=== PATIENT | female | born 1940 | race Caucasian/White ===

== ENCOUNTER 2017-06-15 14:40 | Inpatient (IN) ==
[2017-06-15 17:59] LABS: Basophils # 0.1 10*3/uL (0.0-0.2); Basophils % 0.9 % (0.0-0.8); Eosinophils # 0.2 10*3/uL (0.0-0.87); Eosinophils % 3.3 % (0.00-10.9); Hematocrit 35.3 VOL% (35.7-47.0); Immature Granulocytes % 0.7 %; Immature Granulocytes Absolute 0.04 #; Lymphocytes # 1.5 10*3/uL (1.4-4.0); Lymphocytes % 27.8 % (21.3-54.2); Mean Corpuscular Hemoglobin 35 PG (27-34); Mean Corpuscular Volume 102.6 FL (87-102); Mean Platelet Volume 11.7 FL (9.6-12.0); Monocytes # 0.4 10*3/uL (0.11-0.8); Monocytes % 6.4 % (1.7-12.7); Neutrophils # 3.4 10*3/uL (1.4-7.4); Neutrophils % 60.9 % (38.7-73.9); Platelet Count 207 T/CUMM (130-400); Red Blood Count 3.44 MC/CUMM (3.8-5.5); White Blood Count 5.5 T/CUMM (4-12)
[2017-06-15 18:12] LABS: INR 0.9; PT Patient Result 9.8 SECS; Partial Thromboplastin Time 25.9 SECS (0-40)
[2017-06-15] MEDS: SODIUM CHLORIDE 0.9% 1,000 ML IV SCH (18:27)
--- NOTE | 2017-06-15 18:44 | Hospitalist History & Physical ---
Assessment and Plan (1) Rectal bleeding Status: Acute Assessment and plan: The patient is currently being anticoagulated with Eliquis. Hold Eliquis for now. The patient reports multiple episodes of rectal bleeding in the past which were essentially attributed to internal hemorrhoids. We will consult gastroenterology to evaluate. Current Visit: Yes (2) Chronic anticoagulation Status: Acute Assessment and plan: The patient is currently coagulated with Eliquis. We will hold all anticoagulation agents pending gastroenterology evaluation. Current Visit: No (3) Diabetes Status: Acute Assessment and plan: We will obtain hemoglobin A1c and start Accu-Cheks with sliding scale coverage. Current Visit: No Qualifiers: Diabetes mellitus complication detail: with unspecified neuropathy (4) Hypertension Status: Acute Assessment and plan: We will resume home medications as previously ordered. We will monitor provide supportive measures. Current Visit: No Qualifiers: Hypertension type: essential hypertension Qualified Code(s): I10 - Essential (primary) hypertension History of Present Illness Chief complaint: Rectal bleed History of present illness: This is a very pleasant 76-year-old female that presented to [facility] as a direct admission from the office of Dr. Rosy Lerner for further evaluation of rectal bleeding. The patient has a very long and extensive medical history significant for atrial fibrillation with rapid ventricular response, dysphasia, achalasia, hypertension, diabetes, renal insufficiency, irritable bowel disease, chronic diarrhea, myasthenia gravis, chronic anticoagulation, peripheral edema, hypothyroidism, aortic insufficiency , obstructive sleep apnea, restless leg syndrome, and dyslipidemia. The patient has a history of multiple surgical procedures including pacemaker placement and multiple surgical procedures to her bilateral hands. The patient reported the onset of symptoms 1 day prior to presentation. The patient reports that she chronically has diarrhea and noticed that there was some blood in her stool. She presented to Dr. Rosy Lerner's office for further evaluation. The patient was seen and evaluated by Dr. Lerner. Hospital medicine was contacted regarding direct admission for further evaluation of the patient's rectal bleeding. The patient was subsequently admitted to the hospitalist service for continuation of care. Due to the complexity of the patient's medical history, a gastroenterology consultation has been requested. Home Medications Medication Instructions Recorded Confirmed Type Carvedilol 25 mg PO BID 09/22/15 06/15/17 History Magnesium Chloride [Mag Delay] 64 mg PO BID 09/22/15 06/15/17 History Pramipexole Di-HCl [Pramipexole 3 mg PO BEDTIME 09/22/15 06/15/17 History Dihydrochloride] Sotalol HCl [Sotalol] 80 mg PO BID 09/22/15 06/15/17 History Spironolactone [Aldactone] 25 mg PO DAILY 09/22/15 06/15/17 History Apixaban [Eliquis] 5 mg PO BID 11/19/15 06/15/17 History Coenzyme Q10 200 mg PO BID 11/19/15 06/15/17 History Pyridostigmine Tab [Mestinon] 60 mg PO QID 11/19/15 06/15/17 History Albuterol Sulfate [Proair 2 puff INH Q6H PRN 11/20/15 06/15/17 History Respiclick] Budesonide/Formoterol 160-4.5 2 puffs PO BID 11/20/15 06/15/17 History [Symbicort 160-4.5] Levothyroxine Tab [Synthroid Tab] 150 mcg PO DAILY@0700 07/21/16 06/15/17 History Olmesartan [Benicar] 20 mg PO QAM PRN 07/21/16 06/15/17 History Pantoprazole Tab [Protonix Tab] 40 mg PO DAILY 07/21/16 06/15/17 History Sertraline [Zoloft] 100 mg PO BEDTIME 07/21/16 06/15/17 History Vit B Cmplx No3/FA/C/Biot/Zinc 1 tablet PO DAILY 07/21/16 06/15/17 History [Nephplex Rx Tablet] Ascorbic Acid Tab [Vitamin C Tab] 1,000 mg PO BID tablet 07/22/16 06/15/17 Rx Cholecalciferol (Vitamin D3) 2,500 unit PO DAILY 08/11/16 06/15/17 History [Vitamin D3] Furosemide Tab [Lasix Tab] 1.5 tablet PO QAM 08/11/16 06/15/17 History Allergies Allergy/AdvReac Type Severity Reaction Status Date / Time azathioprine [From Imuran] Allergy Severe ANAPHYLAXIS Verified 07/27/16 10:27 doxycycline Allergy Severe SHORTNESS Verified 07/03/16 07:58 OF BREATH fluconazole [From Diflucan] Allergy Verified 12/09/16 06:51 clindamycin AdvReac Severe Swelling Verified 06/15/17 17:12 of Lip/Tongue/Throat lisinopril AdvReac Severe swelling Verified 06/15/17 17:12 of face throat, and lips ciprofloxacin [From Cipro] AdvReac Mild gout Verified 06/15/17 17:12 levofloxacin [From Levaquin] AdvReac Mild gout Verified 06/15/17 17:12 Medical,Surgical,& Family Hx - Medical History Cardio: History of: Cardiac Dysrhythmia (afib), CHF, Hypertension, Pacemaker No history of: Aneurysm, Cerebrovascular Disease, Congenital Heart Disease Neurology: History of: Vertigo (sometimes), Neurological Problems (myasthenia gravis) No history of: Seizures HEENT: History of: HEENT Problems (SINUS SURGERY) Endocrine: History of: Diabetes Mellitus (NIDDM), Dyslipidemia, Thyroid Disorder Rheumatology: History of;: Fibromyalgia, Gout, Myasthenia Gravis Respiratory: History of: Asthma, Bronchitis, Intubation, Obstructive Sleep Apnea (does not wear her c-pap) Renal: History of: Renal Failure (stage 3), Renal Problems (ELEVATED KIDNEY FUNCTION) Gastrointestinal: History of: GERD, GI Problems (history of achalasia esophagus) Musculoskeletal: History of: Musculoskeletal Problems (restless legs) Hematology: History of: Anemia No history of: Blood Transfusion Reaction Other: History of: Miscellaneous Medical Problems (myasthenia gravis) No history of: Anesthesia Reactions - Surgical History Cardiac Surgeries: Sugical HX of: Cardiac Catheterization Patient Denies: Cardiac Surgery HEENT Surgeries: Surgical HX of: Eye Surgery (CATARACT) Abdominal Surgeries: Surgical HX of: Appendectomy, Cholecystectomy, Colonoscopy , EGD Reproductive Surgeries: Surgical HX of;: Breast Surgery (ABHAY MASTECTOMY, BREAST RECONSTRUCTION X 4), Hysterectomy - Family History Family History: Reports;: Family Cancer (MOTHER-BREAST, FATHER-PROSTATE), Family Heart Disease - Social History Smoking Status: Never smoker Frequency of Alcohol Use: None Type of Drug Use: None Exam - Constitutional Vitals: Period Temp Pulse Resp BP Sys/Bui Pulse Ox Last 24 Hr 97.2 F 52-60 20-20 170/87 97 General appearance: morbidly obese - Head Head exam: Present: normal inspection, normocephalic, atraumatic - Eye Eye exam: Present: EOMI. Absent: conjunctival injection Pupils: Present: JO ANN, normal accommodation - ENT ENT exam: Present: normal exam, normal external ear exam, normal oropharynx - Neck Neck exam: Present: normal inspection. Absent: lymphadenopathy, meningismus, tenderness, thyromegaly - Respiratory Respiratory exam: Present: clear to auscultation bilaterally. Absent: rales, rhonchi, stridor, wheezes - Cardiovascular Cardiovascular exam: Present: regular rate and rhythm. Absent: carotid bruit, diastolic murmur, gallop, JVD, rubs, systolic murmur - GI/Abdominal GI/Abdominal exam: Present: normal bowel sounds, soft. Absent: firm, guarding, tenderness, rebound - Extremities Exam Extremities exam: Present: normal inspection, normal capillary refill, full ROM , edema - Back Exam Back exam: Present: normal inspection - Neurological Exam Neurological exam: Present: alert, oriented X3, CN II-XII intact - Psychiatric Psychiatric exam: Present: normal affect, normal mood - Skin Skin exam: Present: normal color, warm, dry Results - Labs CBC & BMP: 06/15/17 17:37 Lab Results: I have reviewed the past 24 hour labs Quality Measures - Stroke Symptom Onset Unknown: No
[2017-06-15] MEDS ORDERED: GLUCAGON 1 MG VIAL IM PRN (18:47)
[2017-06-15] MEDS ORDERED: DEXTROSE 50% 25 GM/50 ML SYRINGE IV PRN (18:47)
[2017-06-15] MEDS ORDERED: ONDANSETRON 4 MG/2 ML VIAL IV PRN (18:49)
[2017-06-15 19:12] LABS: Alanine Aminotransferase 41 U/L (13-56); Albumin 3.3 G/DL (3.4-5.0); Alkaline Phosphatase 151 U/L (45-117); Aspartate Amino Transferase 26 U/L (0-37); Bilirubin,Total < 0.39 MG/DL (0.2-1.0); Blood Urea Nitrogen 33 MG/DL (7-18); Calcium 9.1 MG/DL (8.5-10.1); Glucose 93 MG/DL (74-106); Osmolality,Calculated 283.5 MOS/KG (273-304); Potassium 4.7 MMOL/L (3.5-5.1); Sodium 139 MMOL/L (136-145); Total Protein 6.9 G/DL (6.4-8.3)
[2017-06-15] MEDS ORDERED: ALBUTEROL 2.5 MG/3 ML NEB RESP TX PRN (19:30)
[2017-06-15] MEDS ORDERED: BUDESONIDE/FORMOTEROL 160-4.5 INHALER 6 GM INH SCH (21:00)
[2017-06-15] MEDS: COENZYME Q10 100 MG CAPSULE PO SCH (21:59)
[2017-06-15] MEDS: SOTALOL 80 MG TABLET PO SCH (21:59)
[2017-06-15] MEDS: CARVEDILOL 25 MG TABLET PO SCH (22:00)
[2017-06-15] MEDS: PYRIDOSTIGMINE 60 MG TABLET PO SCH (22:01)
[2017-06-15] MEDS: PRAMIPEXOLE 1 MG TABLET PO SCH (22:01)
[2017-06-15] MEDS: ASCORBIC ACID 500 MG TABLET PO SCH (22:02)
[2017-06-15] MEDS: MAGNESIUM CHLORIDE 64 MG TABLET PO SCH (22:02)
[2017-06-15] MEDS: SERTRALINE 100 MG TABLET PO SCH (22:02)
[2017-06-15] MEDS: INSULIN REGULAR 100 UNIT/ML SUBCUT SCH (22:03)
[2017-06-16 05:59] LABS: Basophils % 0.9 % (0.0-0.8); Eosinophils # 0.1 10*3/uL (0.0-0.87); Eosinophils % 2.9 % (0.00-10.9); Hematocrit 32.8 VOL% (35.7-47.0); Hemoglobin 11.1 GM/DL (12.0-16.0); Immature Granulocytes % 0.4 %; Immature Granulocytes Absolute 0.02 #; Lymphocytes # 1.3 10*3/uL (1.4-4.0); Mean Corpuscular HGB Conc 33.8 GM/DL (32-36); Mean Corpuscular Hemoglobin 35 PG (27-34); Mean Corpuscular Volume 102.2 FL (87-102); Mean Platelet Volume 11.8 FL (9.6-12.0); Monocytes # 0.3 10*3/uL (0.11-0.8); Monocytes % 7.4 % (1.7-12.7); Neutrophils # 2.6 10*3/uL (1.4-7.4); Neutrophils % 58.4 % (38.7-73.9); Platelet Count 158 T/CUMM (130-400); Red Blood Count 3.21 MC/CUMM (3.8-5.5); Red Cell Distribution Width 14.7 % (9.3-17.3); White Blood Count 4.5 T/CUMM (4-12)
[2017-06-16 06:30] LABS: Albumin 2.7 G/DL (3.4-5.0); Bilirubin,Total 0.6 MG/DL (0.2-1.0); Calcium 8.7 MG/DL (8.5-10.1); Magnesium 2.1 MG/DL (1.8-2.4); Osmolality,Calculated 284.3 MOS/KG (273-304); Phosphorous 3.1 MG/DL (2.5-4.9); Potassium 4.9 MMOL/L (3.5-5.1); Total Protein 5.8 G/DL (6.4-8.3)
[2017-06-16] MEDS: LEVOTHYROXINE 150 MCG TABLET PO SCH (07:03)
[2017-06-16] MEDS: INSULIN REGULAR 100 UNIT/ML SUBCUT SCH ×4 (08:11→21:06)
[2017-06-16] MEDS: ASCORBIC ACID 500 MG TABLET PO SCH ×2 (08:39→21:05)
[2017-06-16] MEDS: SOTALOL 80 MG TABLET PO SCH ×2 (08:39→21:05)
[2017-06-16] MEDS: CHOLECALCIFEROL 1,000 UNIT TABLET PO SCH (08:40)
[2017-06-16] MEDS: COENZYME Q10 100 MG CAPSULE PO SCH ×2 (08:41→21:14)
[2017-06-16] MEDS: PYRIDOSTIGMINE 60 MG TABLET PO SCH ×4 (08:41→21:05)
[2017-06-16] MEDS: MAGNESIUM CHLORIDE 64 MG TABLET PO SCH ×2 (08:42→21:06)
[2017-06-16] MEDS: SPIRONOLACTONE 25 MG TABLET PO SCH (08:43)
[2017-06-16] MEDS: OLMESARTAN 20 MG TABLET PO PRN (08:43)
[2017-06-16] MEDS: FUROSEMIDE 40 MG TABLET PO SCH (08:43)
[2017-06-16] MEDS: MULTIVITAMIN (BEROCCA) TABLET PO SCH (08:44)
[2017-06-16] MEDS: CARVEDILOL 25 MG TABLET PO SCH ×2 (08:44→17:42)
[2017-06-16] MEDS: PANTOPRAZOLE 40 MG VIAL IV SCH (08:46)
--- NOTE | 2017-06-16 10:20 | Gastrointestinal Consult Note ---
Assessment and Plan (1) Rectal bleeding Status: Acute Assessment and plan: 06/16-Two week history of rectal bleeding without abdominal pain without other associated symptoms. Long history of chronic diarrhea. Last endoscopy findings noted with history of diverticulosis in the past. HH stable at at this time. Eliquis on hold with last dose Wednesday. Continue to monitor HH. Okay to start regular diet. Tentative plan for endoscopy for possible esophageal dilation as well as colonoscopy once Eliquis held x 3 days. Plan and addendum to follow by Dr Mcpherson. Current Visit: Yes History of Present Illness Chief complaint: Rectal bleeding History of present illness: Ms. Burks is a 76 year old female who was admitted to the hospital with onset of rectal bleeding. Pt states that she was in her usual state of health until 2 weeks ago when she had an onset of bright red rectal bleeding. She states that she has had episodes of this daily, at times with and without bowel movements, however denies any associated abdominal pain or cramping with this. She states that at times she will notice blood in the stool and other times she will have bright red blood dripping from the rectum when she urinates. She states that she has passed no clots with this. Pt is noted to be on Eliquis, for atrial fibrillation, which is currently on hold with last dose Wednesday. She has a history of myasthenia gravis, achalasis with multiple dilations in the past, IBS with chronic diarrhea ("her entire life"), A-fib with RVR and aortic insufficiency. She denies any weight loss associated with this. She denies any increase in GERD, dyspepsia. States her dysphagia is continuing and has as of recently had to regurgitate her food at times due to this. She has a history of achalasia with multiple dilations in the past as well as Botox injections. She denies any epigastric pain or other associated upper GI symptoms. Her last endoscopy was in 2015 and again in Dec of this year with dilation of esophageal stricture. She also was noted to have a barium swallow last September with findings of prominent narrowing of distal esophagus without passing of barium tablet at the EG junction. Her last colonoscopy, per patient was in 2006 at [facility] however unable to recall the findings. Pt is noted in our database to have had a colonoscopy in 2001 for rectal bleeding with findings of diverticulosis. Home Medications Medication Instructions Recorded Confirmed Type Carvedilol 25 mg PO BID 09/22/15 06/15/17 History Magnesium Chloride [Mag Delay] 64 mg PO BID 09/22/15 06/15/17 History Pramipexole Di-HCl [Pramipexole 3 mg PO BEDTIME 09/22/15 06/15/17 History Dihydrochloride] Sotalol HCl [Sotalol] 80 mg PO BID 09/22/15 06/15/17 History Spironolactone [Aldactone] 25 mg PO DAILY 09/22/15 06/15/17 History Apixaban [Eliquis] 5 mg PO BID 11/19/15 06/15/17 History Coenzyme Q10 200 mg PO BID 11/19/15 06/15/17 History Pyridostigmine Tab [Mestinon] 60 mg PO QID 11/19/15 06/15/17 History Albuterol Sulfate [Proair 2 puff INH Q6H PRN 11/20/15 06/15/17 History Respiclick] Budesonide/Formoterol 160-4.5 2 puffs PO BID 11/20/15 06/15/17 History [Symbicort 160-4.5] Levothyroxine Tab [Synthroid Tab] 150 mcg PO DAILY@0700 07/21/16 06/15/17 History Olmesartan [Benicar] 20 mg PO QAM PRN 07/21/16 06/15/17 History Pantoprazole Tab [Protonix Tab] 40 mg PO DAILY 07/21/16 06/15/17 History Sertraline [Zoloft] 100 mg PO BEDTIME 07/21/16 06/15/17 History Vit B Cmplx No3/FA/C/Biot/Zinc 1 tablet PO DAILY 07/21/16 06/15/17 History [Nephplex Rx Tablet] Ascorbic Acid Tab [Vitamin C Tab] 1,000 mg PO BID tablet 07/22/16 06/15/17 Rx Cholecalciferol (Vitamin D3) 2,500 unit PO DAILY 08/11/16 06/15/17 History [Vitamin D3] Furosemide Tab [Lasix Tab] 1.5 tablet PO QAM 08/11/16 06/15/17 History Allergies Allergy/AdvReac Type Severity Reaction Status Date / Time azathioprine [From Imuran] Allergy Severe ANAPHYLAXIS Verified 07/27/16 10:27 doxycycline Allergy Severe SHORTNESS Verified 07/03/16 07:58 OF BREATH fluconazole [From Diflucan] Allergy Verified 12/09/16 06:51 clindamycin AdvReac Severe Swelling Verified 06/15/17 17:12 of Lip/Tongue/Throat lisinopril AdvReac Severe swelling Verified 06/15/17 17:12 of face throat, and lips ciprofloxacin [From Cipro] AdvReac Mild gout Verified 06/15/17 17:12 levofloxacin [From Levaquin] AdvReac Mild gout Verified 06/15/17 17:12 Medical,Surgical,& Family Hx - Medical History Cardio: History of: Cardiac Dysrhythmia (afib), CHF, Hypertension, Pacemaker No history of: Aneurysm, Cerebrovascular Disease, Congenital Heart Disease Neurology: History of: Vertigo (sometimes), Neurological Problems (myasthenia gravis) No history of: Seizures HEENT: History of: HEENT Problems (SINUS SURGERY) Endocrine: History of: Diabetes Mellitus (NIDDM), Dyslipidemia, Thyroid Disorder Rheumatology: History of;: Fibromyalgia, Gout, Myasthenia Gravis Respiratory: History of: Asthma, Bronchitis, Intubation, Obstructive Sleep Apnea (does not wear her c-pap) Renal: History of: Renal Failure (stage 3), Renal Problems (ELEVATED KIDNEY FUNCTION) Gastrointestinal: History of: GERD, GI Problems (history of achalasia esophagus) Musculoskeletal: History of: Musculoskeletal Problems (restless legs) Hematology: History of: Anemia No history of: Blood Transfusion Reaction Other: History of: Miscellaneous Medical Problems (myasthenia gravis) No history of: Anesthesia Reactions - Surgical History Cardiac Surgeries: Sugical HX of: Cardiac Catheterization Patient Denies: Cardiac Surgery HEENT Surgeries: Surgical HX of: Eye Surgery (CATARACT) Abdominal Surgeries: Surgical HX of: Appendectomy, Cholecystectomy, Colonoscopy , EGD Reproductive Surgeries: Surgical HX of;: Breast Surgery (ABHAY MASTECTOMY, BREAST RECONSTRUCTION X 4), Hysterectomy - Family History Family History: Reports;: Family Cancer (MOTHER-BREAST, FATHER-PROSTATE), Family Heart Disease - Social History Smoking Status: Never smoker Frequency of Alcohol Use: None Type of Drug Use: None - Constitutional Constitutional: Present: as per HPI - EENT Eyes: Present: as per HPI Ears: Present: as per HPI Nose, mouth and throat: Present: as per HPI - Cardiovascular Cardiovascular: Present: as per HPI - Respiratory Respiratory: Present: as per HPI - Gastrointestinal Gastrointestinal: Present: as per HPI, hematochezia - Genitourinary Genitourinary: Present: as per HPI - Musculoskeletal Musculoskeletal: Present: as per HPI - Neurological Neurological: Present: as per HPI - Psychiatric Psychiatric: Present: as per HPI - Endocrine Endocrine: Present: as per HPI Exam - Constitutional Vitals: Period Temp Pulse Resp BP Sys/Bui Pulse Ox Last 24 Hr 96.5 F-97.6 F 52-62 18-20 138-190/67-87 95-97 General appearance: normal weight, no acute distress - Head Head exam: Present: normal inspection, normocephalic - Eye Eye exam: Present: other (lids and conjunctiva unremarkable). Absent: scleral icterus - ENT ENT exam: Present: normal exam, normal oropharynx - Neck Neck exam: Present: normal inspection - Respiratory Respiratory exam: Present: clear to auscultation bilaterally. Absent: rales, rhonchi, wheezes - Cardiovascular Cardiovascular exam: Present: regular rate and rhythm. Absent: diastolic murmur , JVD, systolic murmur - GI/Abdominal GI/Abdominal exam: Present: normal bowel sounds, soft. Absent: ascites, distended, mass, organomegaly, tenderness - Extremities Exam Extremities exam: Present: normal inspection, full ROM - Back Exam Back exam: Present: normal inspection - Neurological Exam Neurological exam: Present: alert, oriented X3 - Psychiatric Psychiatric exam: Present: normal affect, normal mood - Skin Skin exam: Present: normal color, warm, dry Results - Labs CBC & BMP: 06/16/17 05:22 06/16/17 05:22 Lab Results: I have reviewed the past 24 hour labs Quality Measures - Stroke Symptom Onset Unknown: No
[2017-06-16] MEDS: BUDESONIDE/FORMOTEROL 160-4.5 INHALER 6 GM INH SCH ×2 (10:43→21:06)
--- NOTE | 2017-06-16 13:32 | Hospitalist Progress Note ---
Assessment and Plan (1) Rectal bleeding Status: Acute Assessment and plan: Elliquis is on hold. Pt has a history of internal hemorrhoids.H/H is stable GI is following.Tentative plan for endoscopy for possible esophageal dilation as well as colonoscopy once Eliquis held x 3 days. Current Visit: Yes (2) Diabetes Status: Acute Assessment and plan: HbA1c- 5.9 Continue current regime Current Visit: No Qualifiers: Diabetes mellitus complication detail: with unspecified neuropathy (3) Hypertension Status: Acute Assessment and plan: stable Current Visit: No Qualifiers: Hypertension type: essential hypertension Qualified Code(s): I10 - Essential (primary) hypertension (4) Chronic atrial fibrillation Status: Acute Assessment and plan: Rate is controlled, eliquis on hold due to rectal bleed Current Visit: Yes (5) Hypothyroidism Status: Acute Assessment and plan: continue with supplements Current Visit: Yes Hospitalist: Subjective Interval history: Patient seen this am, she states that she is still passing bloody stools.Her H/ H is currently stable. Exam - Constitutional Vitals: Period Temp Pulse Resp BP Sys/Bui Pulse Ox Last 24 Hr 96.5 F-97.6 F 52-62 16-20 137-190/63-87 91-97 General appearance: no acute distress - Head Head exam: Present: normal inspection - Respiratory Respiratory exam: Present: clear to auscultation bilaterally - Cardiovascular Cardiovascular exam: Present: regular rate and rhythm - GI/Abdominal GI/Abdominal exam: Present: normal bowel sounds - Extremities Exam Extremities exam: Present: normal inspection Results - Labs CBC & BMP: 06/16/17 05:22 06/16/17 05:22 Lab Results: I have reviewed the past 24 hour labs Quality Measures - Stroke Symptom Onset Unknown: No
[2017-06-16] MEDS: SODIUM CHLORIDE 0.9% 1,000 ML IV SCH (20:26)
[2017-06-16] MEDS: PRAMIPEXOLE 1 MG TABLET PO SCH (21:05)
[2017-06-16] MEDS: SERTRALINE 100 MG TABLET PO SCH (21:06)
[2017-06-17 07:06] LABS: Basophils # 0.1 10*3/uL (0.0-0.2); Basophils % 1.3 % (0.0-0.8); Eosinophils # 0.1 10*3/uL (0.0-0.87); Eosinophils % 2.6 % (0.00-10.9); Hematocrit 36.8 VOL% (35.7-47.0); Hemoglobin 12.3 GM/DL (12.0-16.0); Immature Granulocytes % 0.4 %; Immature Granulocytes Absolute 0.02 #; Lymphocytes # 1.2 10*3/uL (1.4-4.0); Lymphocytes % 22.7 % (21.3-54.2); Mean Corpuscular HGB Conc 33.4 GM/DL (32-36); Mean Corpuscular Hemoglobin 34 PG (27-34); Mean Corpuscular Volume 101.1 FL (87-102); Mean Platelet Volume 11.7 FL (9.6-12.0); Monocytes # 0.3 10*3/uL (0.11-0.8); Monocytes % 5.6 % (1.7-12.7); Neutrophils # 3.6 10*3/uL (1.4-7.4); Neutrophils % 67.4 % (38.7-73.9); Platelet Count 189 T/CUMM (130-400); Red Blood Count 3.64 MC/CUMM (3.8-5.5); Red Cell Distribution Width 14.7 % (9.3-17.3); White Blood Count 5.3 T/CUMM (4-12)
[2017-06-17] MEDS: LEVOTHYROXINE 150 MCG TABLET PO SCH (07:22)
[2017-06-17 07:28] LABS: Calcium 8.4 MG/DL (8.5-10.1); Osmolality,Calculated 278.5 MOS/KG (273-304); Potassium 4.1 MMOL/L (3.5-5.1)
[2017-06-17] MEDS: INSULIN REGULAR 100 UNIT/ML SUBCUT SCH ×4 (07:39→21:00)
[2017-06-17] MEDS: CHOLECALCIFEROL 1,000 UNIT TABLET PO SCH (09:08)
[2017-06-17] MEDS: SPIRONOLACTONE 25 MG TABLET PO SCH (09:09)
[2017-06-17] MEDS: FUROSEMIDE 40 MG TABLET PO SCH (09:09)
[2017-06-17] MEDS: CARVEDILOL 25 MG TABLET PO SCH ×2 (09:09→18:22)
[2017-06-17] MEDS: ASCORBIC ACID 500 MG TABLET PO SCH ×2 (09:09→20:55)
[2017-06-17] MEDS: MULTIVITAMIN (BEROCCA) TABLET PO SCH (09:09)
[2017-06-17] MEDS: PYRIDOSTIGMINE 60 MG TABLET PO SCH ×4 (09:09→21:01)
[2017-06-17] MEDS: MAGNESIUM CHLORIDE 64 MG TABLET PO SCH ×2 (09:09→20:55)
[2017-06-17] MEDS: OLMESARTAN 20 MG TABLET PO PRN (09:09)
[2017-06-17] MEDS: PANTOPRAZOLE 40 MG VIAL IV SCH (09:10)
[2017-06-17] MEDS: SOTALOL 80 MG TABLET PO SCH ×2 (09:10→20:56)
[2017-06-17] MEDS: COENZYME Q10 100 MG CAPSULE PO SCH ×2 (09:10→20:55)
[2017-06-17] MEDS: BUDESONIDE/FORMOTEROL 160-4.5 INHALER 6 GM INH SCH ×2 (09:10→20:59)
--- NOTE | 2017-06-17 10:18 | Hospitalist Progress Note ---
Assessment and Plan (1) Rectal bleeding Status: Acute Assessment and plan: Elliquis is on hold. Pt has a history of internal hemorrhoids.H/H is stable GI is following.Tentative plan for endoscopy for possible esophageal dilation as well as colonoscopy once Eliquis held x 3 days. Colonoscopy has been scheduled for am. Current Visit: Yes (2) Diabetes Status: Acute Assessment and plan: HbA1c- 5.9 Continue current regime Current Visit: No Qualifiers: Diabetes mellitus complication detail: with unspecified neuropathy (3) Hypertension Status: Acute Assessment and plan: add Norvasc 5mg, follow response Current Visit: No Qualifiers: Hypertension type: essential hypertension Qualified Code(s): I10 - Essential (primary) hypertension (4) Chronic atrial fibrillation Status: Acute Assessment and plan: Rate is controlled, eliquis on hold due to rectal bleed Current Visit: Yes (5) Hypothyroidism Status: Acute Assessment and plan: continue with supplements Current Visit: Yes (6) Myasthenia gravis Status: Chronic Assessment and plan: Patient has requested to have her IV IG that she takes for this condition at [place]. She was due for one yesterday. Plan Nursing staff to get records of dose and give. Current Visit: No Hospitalist: Subjective Interval history: 76yr old who was on eliquis for A.Fib is admitted for rectal bleed. She also has a history of hemmorrhoids. H/H has been stable. GI is planning an esophageal dilation as well as colonoscopy once Eliquis held x 3 days. Colonoscopy has been scheduled for am.She has no new complaints. Exam - Constitutional Vitals: Period Temp Pulse Resp BP Sys/Bui Pulse Ox Last 24 Hr 96.7 F-98.6 F 52-63 16-20 137-166/63-84 91-97 General appearance: normal weight - Head Head exam: Present: normal inspection - Neck Neck exam: Present: normal inspection - Respiratory Respiratory exam: Present: clear to auscultation bilaterally - Cardiovascular Cardiovascular exam: Present: regular rate and rhythm - GI/Abdominal GI/Abdominal exam: Present: normal bowel sounds - Extremities Exam Extremities exam: Present: normal inspection - Neurological Exam Neurological exam: Present: alert, oriented X3 Results - Labs CBC & BMP: 06/17/17 06:36 06/17/17 06:36 Lab Results: I have reviewed the past 24 hour labs Quality Measures - Stroke Symptom Onset Unknown: No
[2017-06-17] MEDS ORDERED: BISACODYL 5 MG TABLET PO ONE (10:46)
--- NOTE | 2017-06-17 10:46 | Gastrointestinal Progress Note ---
Assessment and Plan (1) Rectal bleeding Status: Acute Assessment and plan: 06/17-no reports of rectal bleeding. Stools are negative for occult blood. H&H stable at 36. Plans to proceed with colonoscopy on tomorrow. Further plan an addendum follow Dr. Mcpherson. 06/16-Two week history of rectal bleeding without abdominal pain without other associated symptoms. Long history of chronic diarrhea. Last endoscopy findings noted with history of diverticulosis in the past. HH stable at at this time. Eliquis on hold with last dose Wednesday night. Continue to monitor HH. Okay to start regular diet. Tentative plan for endoscopy for possible esophageal dilation as well as colonoscopy once Eliquis held x 3 days. Plan and addendum to follow by Dr Mcpherson. Current Visit: Yes Gastroenterology - PN: Subj Interval history: CC: Rectal bleeding Patient is seen, awake and alert lying in bed. States she had an uneventful night and is feeling somewhat better today. She denies any overt bleeding at this time. Abdomen soft, nontender. Stools were noted to be negative for occult blood. H&H is stable at . Eliquis remains on hold at this time and plans to proceed with colonoscopy on tomorrow. Patient does voice concerns that her IVIG infusion is due at this time and she is concerned about when she will be able to have this done. This is normally done at [facility] under Dr. Steinberg however patient states that she initially is followed at [facility] by Dr. Valentine who is managing her infusions through Dr. Steinberg. Spoke with patient's nurse and she will discuss with Dr. Schilling the possibility of contacting Dr. Valentine for appropriate orders to do her IVIG during this hospital stay if that is a possibility. ROS: Denies shortness of breath or chest Exam (Progress Note) - Constitutional Vitals: Period Temp Pulse Resp BP Sys/Bui Pulse Ox Last 24 Hr 96.7 F-98.6 F 52-63 16-20 137-166/63-84 91-97 - Other Additional findings: General appearance: normal weight, no acute distress - Head Head exam: Present: normal inspection, normocephalic - Eye Eye exam: Present: other (lids and conjunctiva unremarkable). Absent: scleral icterus - ENT ENT exam: Present: normal exam, normal oropharynx - Neck Neck exam: Present: normal inspection - Respiratory Respiratory exam: Present: clear to auscultation bilaterally. Absent: rales, rhonchi, wheezes - Cardiovascular Cardiovascular exam: Present: regular rate and rhythm. Absent: diastolic murmur , JVD, systolic murmur - GI/Abdominal GI/Abdominal exam: Present: normal bowel sounds, soft. Absent: ascites, distended, mass, organomegaly, tenderness - Extremities Exam Extremities exam: Present: normal inspection, full ROM - Back Exam Back exam: Present: normal inspection - Neurological Exam Neurological exam: Present: alert, oriented X3 - Psychiatric Psychiatric exam: Present: normal affect, normal mood - Skin Skin exam: Present: normal color, warm, dry Results - Labs CBC & BMP: 06/17/17 06:36 06/17/17 06:36 Lab Results: I have reviewed the past 24 hour labs
[2017-06-17] MEDS: SODIUM CHLORIDE 0.9% 1,000 ML IV SCH (10:52)
[2017-06-17] MEDS ORDERED: POLYETHYLENE GLYCOL POWDER 255 GM BOTTLE PO ONE (11:00)
[2017-06-17] MEDS: amLODIPine 5 MG TABLET PO SCH (14:08)
[2017-06-17] MEDS: PRAMIPEXOLE 1 MG TABLET PO SCH (20:55)
[2017-06-17] MEDS: SERTRALINE 100 MG TABLET PO SCH (20:56)
[2017-06-18 05:30] LABS: Basophils # 0.1 10*3/uL (0.0-0.2); Basophils % 0.8 % (0.0-0.8); Eosinophils # 0.2 10*3/uL (0.0-0.87); Eosinophils % 3.5 % (0.00-10.9); Hematocrit 35.1 VOL% (35.7-47.0); Hemoglobin 11.9 GM/DL (12.0-16.0); Immature Granulocytes % 0.3 %; Immature Granulocytes Absolute 0.02 #; Lymphocytes # 1.5 10*3/uL (1.4-4.0); Lymphocytes % 25.4 % (21.3-54.2); Mean Corpuscular HGB Conc 33.9 GM/DL (32-36); Mean Corpuscular Hemoglobin 34 PG (27-34); Mean Corpuscular Volume 100.9 FL (87-102); Mean Platelet Volume 11.3 FL (9.6-12.0); Monocytes # 0.4 10*3/uL (0.11-0.8); Neutrophils # 3.9 10*3/uL (1.4-7.4); Platelet Count 176 T/CUMM (130-400); Red Blood Count 3.48 MC/CUMM (3.8-5.5); Red Cell Distribution Width 14.6 % (9.3-17.3)
[2017-06-18] MEDS: SODIUM CHLORIDE 0.9% 1,000 ML IV SCH (05:40)
[2017-06-18] MEDS ORDERED: MAGNESIUM CITRATE 300 ML BOTTLE PO ONE (06:00)
[2017-06-18 06:07] LABS: Calcium 8.8 MG/DL (8.5-10.1); Osmolality,Calculated 280.4 MOS/KG (273-304); Potassium 3.8 MMOL/L (3.5-5.1)
[2017-06-18] MEDS: INSULIN REGULAR 100 UNIT/ML SUBCUT SCH ×4 (07:41→20:12)
--- NOTE | 2017-06-18 13:57 | History and Physical Update ---
History and Physical Update - History and Physical H&P was reviewed, the patient examined and there: are no changes in the patients condition since last H&P was completed. - Physical Exam Mental Status: alert and oriented Heart: regular rate and rhythm Lung: clear to auscultation Abdomen: within normal limits Vitals: within normal limits
[2017-06-18] MEDS ORDERED: PROPOFOL 200 MG/20 ML VIAL IV ONE (14:01)
[2017-06-18] MEDS ORDERED: LIDOCAINE 1% 5 ML VIAL ONE (14:01)
[2017-06-18] MEDS ORDERED: HYDROCORTISONE 100 MG VIAL ONE (14:01)
--- NOTE | 2017-06-18 14:19 | Operative Note ---
Date of procedure: 06/18/17 Pre-op diagnosis: Chronic diarrhea, blood in stool Procedure: Procedure note: Colonoscopy with random colon biopsies Physician: Dr. Fabrizio Mcpherson Brief clinical abstract: Patient is a 76-year-old female who has had chronic diarrhea with recent onset of bright red blood in her stool noted over the last couple of weeks. Endoscopic findings: After informed consent was obtained, the patient was placed in the left lateral decubitus position. Digital rectal exam was performed with no palpable abnormalities felt. Pediatric videocolonoscope was inserted into the rectum and advanced to the cecum without difficulty. Terminal ileum was intubated with distal 5-10 cm examined showing no abnormality. The endoscope was withdrawn back into the colon. Retroflex view within the cecum was performed back to the level of the hepatic flexure with no abnormality noted. The endoscope was advanced back to the cecum and on withdrawal colonic mucosa was carefully examined. Bowel prep was of good quality. Withdrawal time was over 6 minutes duration. On withdrawal no polyps were seen. Vascular pattern throughout the colon appeared normal with no inflammatory changes noted. Random biopsies were obtained throughout the colon to evaluate her chronic diarrhea. A few diverticuli were noted in the sigmoid colon. The endoscope was withdrawn in the rectum with retroflex view showing small internal hemorrhoids. The endoscope was removed and patient appeared to tolerate procedure well. Impression: #1 sigmoid diverticulosis #2 otherwise normal-appearing colon and terminal ileum #3 internal hemorrhoids Plan: Advance diet. Await pathology from above. Add Imodium 2 mg 2 twice a day. Could discharge from GI standpoint if tolerates diet and would plan to follow-up pathology next week by phone and determine subsequent workup. Anesthesia: MAC Surgeon / Physician: Karel Mcpherson Estimated blood loss: minimal Specimens: other (Random colon biopsies) Condition: stable Disposition: post procedure unit Results - Labs CBC & BMP: 06/18/17 05:17 06/18/17 05:17 Discharge Plan - Discharge Medications No Action Pramipexole Di-HCl [Pramipexole Dihydrochloride] 3 mg PO BEDTIME Sotalol HCl [Sotalol] 80 mg PO BID Carvedilol 25 mg PO BID Spironolactone [Aldactone] 25 mg PO DAILY Magnesium Chloride [Mag Delay] 64 mg PO BID Coenzyme Q10 200 mg PO BID Pyridostigmine Tab [Mestinon] 60 mg PO QID Apixaban [Eliquis] 5 mg PO BID Albuterol Sulfate [Proair Respiclick] 2 puff INH Q6H PRN PRN Reason: Shortness Of Breath/Wheezing Budesonide/Formoterol 160-4.5 [Symbicort 160-4.5] 2 puffs PO BID Sertraline [Zoloft] 100 mg PO BEDTIME Pantoprazole Tab [Protonix Tab] 40 mg PO DAILY Levothyroxine Tab [Synthroid Tab] 150 mcg PO DAILY@0700 Olmesartan [Benicar] 20 mg PO QAM PRN PRN Reason: Hypertension Vit B Cmplx No3/FA/C/Biot/Zinc [Nephplex Rx Tablet] 1 tablet PO DAILY Ascorbic Acid Tab [Vitamin C Tab] 1,000 mg PO BID tablet Furosemide Tab [Lasix Tab] 1.5 tablet PO QAM Cholecalciferol (Vitamin D3) [Vitamin D3] 2,500 unit PO DAILY - Follow Up or Referral - Forms/Instructions
--- NOTE | 2017-06-18 14:23 | Anesthesia Post-Op ---
Anesthesia Post OP - Post Ansesthetic Evaluation Patient seen in post op: Yes Resp: within normal limits CV: within normal limits Mental: within normal limits Temp: within normal limits Wjrr-Ic-Kybiuvtag: within normal limits Nausea and Vomiting: within normal limits Pain: within normal limits
[2017-06-18] MEDS ORDERED: EPINEPHrine 1 MG/ML VIAL IV PRN (14:29)
[2017-06-18] MEDS: PYRIDOSTIGMINE 60 MG TABLET PO SCH ×4 (14:35→20:30)
[2017-06-18] MEDS ORDERED: IMMUNE GLOBULIN 10% 40 GM in PREMIX 1 EACH IV ONE (15:00)
[2017-06-18] MEDS: LEVOTHYROXINE 150 MCG TABLET PO SCH (15:25)
[2017-06-18] MEDS: CARVEDILOL 25 MG TABLET PO SCH ×2 (15:26→17:40)
[2017-06-18] MEDS: SOTALOL 80 MG TABLET PO SCH ×2 (15:27→20:28)
[2017-06-18] MEDS: COENZYME Q10 100 MG CAPSULE PO SCH ×2 (15:27→20:28)
[2017-06-18] MEDS: SPIRONOLACTONE 25 MG TABLET PO SCH (15:37)
[2017-06-18] MEDS: MULTIVITAMIN (BEROCCA) TABLET PO SCH (15:37)
[2017-06-18] MEDS: FUROSEMIDE 40 MG TABLET PO SCH (15:38)
[2017-06-18] MEDS: amLODIPine 5 MG TABLET PO SCH (15:38)
[2017-06-18] MEDS: PANTOPRAZOLE 40 MG VIAL IV SCH (15:39)
[2017-06-18] MEDS: MAGNESIUM CHLORIDE 64 MG TABLET PO SCH ×2 (15:42→20:28)
[2017-06-18] MEDS: BUDESONIDE/FORMOTEROL 160-4.5 INHALER 6 GM INH SCH ×2 (15:42→20:30)
[2017-06-18] MEDS: ASCORBIC ACID 500 MG TABLET PO SCH ×2 (15:43→20:28)
[2017-06-18] MEDS: CHOLECALCIFEROL 1,000 UNIT TABLET PO SCH (15:43)
--- NOTE | 2017-06-18 16:30 | Hospitalist Progress Note ---
Assessment and Plan - Time spent with patient Time spent with patient: Greater than 30 minutes (Pt is new to me. I reviewed pt 's chart today. I discussed with pt and RN in regarding her clinical status today.) (1) Rectal bleeding Status: Acute Assessment and plan: tolerated scope well today. Has diverticulosis and internal hemorrhoids. GI f/u. Monitor H/H. Transfuse if needed. Current Visit: Yes (2) Atrial fibrillation with rapid ventricular response Status: Acute Current Visit: No (3) Chronic anticoagulation Status: Acute Assessment and plan: May resume it in a day or two. Current Visit: No (4) Diabetes Status: Acute Current Visit: No Qualifiers: Diabetes mellitus complication detail: with unspecified neuropathy (5) Hypertension Status: Acute Current Visit: No Qualifiers: Hypertension type: essential hypertension Qualified Code(s): I10 - Essential (primary) hypertension (6) Hypothyroidism Status: Acute Current Visit: No (7) Pacemaker Status: Acute Current Visit: No (8) Renal insufficiency Status: Acute Assessment and plan: Cr 1.1 today. Monitor Cr level in am. Current Visit: No (9) Myasthenia gravis Status: Chronic Assessment and plan: IVIG today. Current Visit: No Hospitalist: Subjective Interval history: No overnight acute event. Tolerate colonoscopy well this afternoon. H/H stable. Cr 1.1 No fever or diarrhea reported. Exam - Constitutional Vitals: Period Temp Pulse Resp BP Sys/Bui Pulse Ox Last 24 Hr 96.9 F-98.0 F 59-64 14-20 115-183/61-97 93-99 Exam: General: Sitting at bedside. AAOx3. HEENT: NC AT EOMI, normal lips and gum and teeth. Lungs: B/L CTA Heart: +S1/S2, RRR, no gallops. Abd: +BS, NT ND Neuro: Can ambulate. AAOx3. Results - Labs CBC & BMP: 06/18/17 05:17 06/18/17 05:17 Quality Measures - Stroke Symptom Onset Unknown: No
[2017-06-18] MEDS: PRAMIPEXOLE 1 MG TABLET PO SCH (20:29)
[2017-06-18] MEDS: SERTRALINE 100 MG TABLET PO SCH (20:30)
[2017-06-18] MEDS ORDERED: LOPERAMIDE 2 MG CAPSULE PO ONE (21:00)
[2017-06-19 02:34] LABS: Basophils # 0.1 10*3/uL (0.0-0.2); Basophils % 0.7 % (0.0-0.8); Eosinophils # 0.1 10*3/uL (0.0-0.87); Eosinophils % 1.9 % (0.00-10.9); Hematocrit 35.5 VOL% (35.7-47.0); Hemoglobin 11.8 GM/DL (12.0-16.0); Immature Granulocytes % 0.5 %; Immature Granulocytes Absolute 0.04 #; Lymphocytes # 1.2 10*3/uL (1.4-4.0); Lymphocytes % 16.4 % (21.3-54.2); Mean Corpuscular HGB Conc 33.2 GM/DL (32-36); Mean Corpuscular Hemoglobin 34 PG (27-34); Mean Corpuscular Volume 101.4 FL (87-102); Mean Platelet Volume 11.7 FL (9.6-12.0); Monocytes # 0.5 10*3/uL (0.11-0.8); Monocytes % 6.4 % (1.7-12.7); Neutrophils # 5.5 10*3/uL (1.4-7.4); Neutrophils % 74.1 % (38.7-73.9); Platelet Count 186 T/CUMM (130-400); Red Cell Distribution Width 14.8 % (9.3-17.3); White Blood Count 7.5 T/CUMM (4-12)
[2017-06-19 02:51] LABS: Calcium 8.4 MG/DL (8.5-10.1); Magnesium 2.1 MG/DL (1.8-2.4); Osmolality,Calculated 281.7 MOS/KG (273-304); Potassium 3.8 MMOL/L (3.5-5.1)
[2017-06-19] MEDS: INSULIN REGULAR 100 UNIT/ML SUBCUT SCH ×2 (08:33→12:33)
[2017-06-19] MEDS: CHOLECALCIFEROL 1,000 UNIT TABLET PO SCH (09:10)
[2017-06-19] MEDS: ASCORBIC ACID 500 MG TABLET PO SCH (09:12)
[2017-06-19] MEDS: SOTALOL 80 MG TABLET PO SCH (09:12)
[2017-06-19] MEDS: MULTIVITAMIN (BEROCCA) TABLET PO SCH (09:12)
[2017-06-19] MEDS: OLMESARTAN 20 MG TABLET PO PRN (09:13)
[2017-06-19] MEDS: LEVOTHYROXINE 150 MCG TABLET PO SCH (09:14)
[2017-06-19] MEDS: CARVEDILOL 25 MG TABLET PO SCH (09:15)
[2017-06-19] MEDS: amLODIPine 5 MG TABLET PO SCH (09:15)
[2017-06-19] MEDS: SPIRONOLACTONE 25 MG TABLET PO SCH (09:15)
[2017-06-19] MEDS: PYRIDOSTIGMINE 60 MG TABLET PO SCH ×2 (09:16→13:30)
[2017-06-19] MEDS: FUROSEMIDE 40 MG TABLET PO SCH (09:16)
[2017-06-19] MEDS: MAGNESIUM CHLORIDE 64 MG TABLET PO SCH (09:18)
[2017-06-19] MEDS: PANTOPRAZOLE 40 MG VIAL IV SCH (09:19)
[2017-06-19] MEDS: COENZYME Q10 100 MG CAPSULE PO SCH (09:28)
[2017-06-19] MEDS: BUDESONIDE/FORMOTEROL 160-4.5 INHALER 6 GM INH SCH (09:31)
[2017-06-19] MEDS ORDERED: APIXABAN 5 MG TABLET PO SCH (11:30)
--- NOTE | 2017-06-19 12:23 | Discharge Summary ---
<Lisa Escobar - Last Filed: 06/19/17 12:18> Hospital Course - Hospital Course Hospital Course: This is a very pleasant 76-year-old female that presented to [facility] on the afternoon of June 15, 2017 as a direct admission from the office of Dr. Rosy Lerner for further evaluation of rectal bleeding. The patient has a very long and extensive medical history significant for atrial fibrillation with rapid ventricular response, dysphasia, achalasia, hypertension , diabetes, renal insufficiency, irritable bowel disease, chronic diarrhea, myasthenia gravis, chronic anticoagulation, peripheral edema, hypothyroidism, aortic insufficiency, obstructive sleep apnea, restless leg syndrome, and dyslipidemia. The patient has a history of multiple surgical procedures including pacemaker placement and multiple surgical procedures to her bilateral hands. The patient reported the onset of symptoms 1 day prior to presentation. The patient reported that she chronically has diarrhea and noticed that there was some blood in her stool. She presented to Dr. Rosy Lerner's office for further evaluation. The patient was seen and evaluated by Dr. Lerner. Hospital medicine was contacted regarding direct admission for further evaluation of the patient's rectal bleeding. The patient was subsequently admitted to the hospitalist service for continuation of care. Due to the complexity of the patient's medical history, a gastroenterology consultation has been requested. The patient was seen and evaluated by gastroenterology and recommendations were given. The patient's anticoagulant agents were placed on hold pending schedule colonoscopy. On May 18, 2017, the patient underwent colonoscopy with random colon biopsies under the direction of Dr. Fabrizio Mcpherson; which were significant for sigmoid diverticulosis and internal hemorrhoids however, the colon and terminal ileum was normal in appearance. The patient was placed on antidiarrheal agents and slow diet advancement was started. The patient's condition gradually improved. The patient has not experienced no further episodes of rectal hemorrhage. The patient has experienced no significant overnight events. Today, we feel that the patient is indeed appropriate for discharge to follow-up with her primary care physician and Dr. Fabrizio Mcpherson visor installer as directed. Diagnosis - Discharge Diagnosis (1) Rectal bleeding Status: Acute (2) Chronic anticoagulation Status: Acute (3) Diabetes Status: Acute (4) Hypertension Status: Acute Discharge Plan - Discharge Data Disposition: Disch To Home/Self Care - Discharge Medications New amLODIPine [Norvasc] 5 mg PO DAILY #30 tablet Continue Pramipexole Di-HCl [Pramipexole Dihydrochloride] 3 mg PO BEDTIME Sotalol HCl [Sotalol] 80 mg PO BID Carvedilol 25 mg PO BID Spironolactone [Aldactone] 25 mg PO DAILY Magnesium Chloride [Mag Delay] 64 mg PO BID Coenzyme Q10 200 mg PO BID Pyridostigmine Tab [Mestinon] 60 mg PO QID Apixaban [Eliquis] 5 mg PO BID Albuterol Sulfate [Proair Respiclick] 2 puff INH Q6H PRN PRN Reason: Shortness Of Breath/Wheezing Budesonide/Formoterol 160-4.5 [Symbicort 160-4.5] 2 puffs PO BID Sertraline [Zoloft] 100 mg PO BEDTIME Pantoprazole Tab [Protonix Tab] 40 mg PO DAILY Levothyroxine Tab [Synthroid Tab] 150 mcg PO DAILY@0700 Olmesartan [Benicar] 20 mg PO QAM PRN PRN Reason: Hypertension Vit B Cmplx No3/FA/C/Biot/Zinc [Nephplex Rx Tablet] 1 tablet PO DAILY Ascorbic Acid Tab [Vitamin C Tab] 1,000 mg PO BID tablet Furosemide Tab [Lasix Tab] 1.5 tablet PO QAM Cholecalciferol (Vitamin D3) [Vitamin D3] 2,500 unit PO DAILY - Follow Up or Referral - Forms/Instructions Exam - Constitutional Vitals: Period Temp Pulse Resp BP Sys/Bui Pulse Ox Last 24 Hr 96.9 F-97.8 F 59-73 14-24 120-183/61-105 93-99 Discharge Results Procedures and tests throughout hospitalization: Pending Orders 06/15/17 Occult Blood, Stool Stat 06/16/17 18:46 Stool Culture Routine Labs on day of discharge: Labs from last 24 hours 06/19/17 06/19/17 06/19/17 11:58 07:47 01:30 WBC RBC Hgb Hct MCV MCH MCHC RDW Plt Count MPV Neut % (Auto) Lymph % (Auto) [place] % (Auto) Eos % (Auto) Baso % (Auto) Neut # (Auto) Lymph # (Auto) [place] # (Auto) Eos # (Auto) Baso # (Auto) Immature Gran % Nucleated RBC % Immature Gran # Nucleated RBCs # Immature Plt Fraction Sodium 138 Potassium 3.8 Chloride 104 Carbon Dioxide 26 Anion Gap 11.8 BUN 29 H D Creatinine 1.50 H GFR Calculation 42 BUN/Creatinine Ratio 19.00 Glucose 125 H POC Glucose 100 123 H Calculated Osmolality 281.7 Calcium 8.4 L Magnesium 2.1 06/19/17 06/18/17 06/18/17 01:30 20:12 15:39 WBC 7.5 RBC 3.50 L Hgb 11.8 L Hct 35.5 L MCV 101.4 MCH 34 MCHC 33.2 RDW 14.8 Plt Count 186 MPV 11.7 Neut % (Auto) 74.1 H Lymph % (Auto) 16.4 L [place] % (Auto) 6.4 Eos % (Auto) 1.9 Baso % (Auto) 0.7 Neut # (Auto) 5.5 Lymph # (Auto) 1.2 L [place] # (Auto) 0.5 Eos # (Auto) 0.1 Baso # (Auto) 0.1 Immature Gran % 0.5 Nucleated RBC % 0.0 Immature Gran # 0.04 Nucleated RBCs # 0.00 Immature Plt Fraction 0.0 Sodium Potassium Chloride Carbon Dioxide Anion Gap BUN Creatinine GFR Calculation BUN/Creatinine Ratio Glucose POC Glucose 148 H 102 Calculated Osmolality Calcium Magnesium DS: Provider Date of admission: 06/15/17 16:49 Primary care physician: . No PCP Attending physician on admission: Monico Villalobos MD Consults: 06/15/17 17:10 Consult to Physician [CONS] Routine Comment: Consulting Provider: Karel Mcpherson When should Consulting Provider be notified: In am Consult to Specialist Group: Gastroenterology Consult Notification Comment: pt has been seen per doctors reports 06/15/17 17:16 Consult to Physician [CONS] Routine Comment: Consulting Provider: Discharging clinician: Lisa Escobar CNP <Rufino Laureano - Last Filed: 06/19/17 13:35> Discharge Plan - Discharge Data Condition at Discharge: Stable Discharge Diet: heart healthy Activity: resume usual activities as tolerated Hygiene: no restrictions Weight Bearing at Discharge: full weight bearing Driving: not until seen by doctor Contact your physician if you experience:: fever over 101, Redness or swelling, Nausea/Vomiting, Shortness of breath, Bleeding, pain uncontrolled by pain medications Exam - Constitutional General appearance: morbidly obese - Head Head exam: Present: normocephalic, atraumatic - Eye Eye exam: Present: EOMI Pupils: Present: JO ANN - ENT ENT exam: Present: normal exam - Neck Neck exam: Present: normal inspection - Respiratory Respiratory exam: Present: clear to auscultation bilaterally - Cardiovascular Cardiovascular exam: Present: regular rate and rhythm - GI/Abdominal GI/Abdominal exam: Present: normal bowel sounds, soft - Back Exam Back exam: Present: normal inspection - Neurological Exam Neurological exam: Present: alert, oriented X3, CN II-XII intact - Psychiatric Psychiatric exam: Present: normal affect, normal mood - Skin Skin exam: Present: normal color, warm, dry
[2017-06-19] MEDS: SODIUM CHLORIDE 0.9% 1,000 ML IV SCH (12:32)
[2017-06-19 12:35] VITALS: BP 123/78
--- NOTE | 2017-06-21 17:19 | Pathology Report from [facility] ---
[facility] ACCESSION # : [id number] PATIENT NAME : Wally Burks ORDERING DR : ERWIN URIARTE MD CLINICAL HX: Diarrhea POST-OP DX: Colitis SPECIMEN INFO: Random colon biopsy GROSS DESCRIPTION: The specimen is received in formalin labeled with the patients name WALLY BURKS is numerous 0.2 cm chacon tissue fragments. Submitted entirely in one cassette. DIAGNOSIS FOR WALLY BURKS: RANDOM COLON BIOPSY: Superficial chronic inflammation, benign lymphoid aggregates, focal superficial neutrophilic debris. No evidence of inflammatory bowel disease, lymphocytic/collagenous colitis, ischemic changes, pseudomembrane, or malignancy. Tryptase stain positive, as may seen in mastocytic enterocolitis. COLLECTED DATE: 06/20/2017 [facility] REPORT DATE: 06/21/2017 ELECTRONICALLY SIGNED BY: Carmelita Kline M.D. 06/21/2017 - 12:42:49 [facility]
--- NOTE | 2017-06-22 14:05 | Physician Query Form ---
CLICK EDIT DOCUMENT TO SELECT QUERY ANSWER --> OK --> SIGN Abbie Catalan RN, CCDS Certified Clinical Brand Planner W) [phone] (f) [phone] [email or web address] PROVIDERS: Make your selection(s) from the choices in EACH section by typing an "x" and enter comments in the comment section. Please use your independent medical judgment in providing your response. This request does not imply that any particular answer is desired or expected. CLINICAL INDICATORS: (Providers should not edit this section) The medical record indicates that the patient was admitted with GI bleeding, Hx of CHF, and the patient was treated with PO Lasix. Please provide further specificity regarding CHF. ACUITY: (x ) Acute ( ) Chronic ( ) Acute on Chronic ( ) Clinically unable to determine TYPE: ( ) Systolic (HFrEF - heart failure with reduced systolic function/EF) ( ) Diastolic (HFpEF - heart failure with preserved systolic function/EF) ( ) Combined Systolic/Diastolic ( ) Other, please specify: ( x) Clinically unable to determine ( ) Past Medical History of Systolic CHF ( ) Past Medical History of Diastolic CHF ( ) Clinically unable to determine COMMENTS: PLEASE ALSO DOCUMENT RESPONSE IN PROGRESS NOTES AND/OR DISCHARGE SUMMARY Use of terms such as suspected, likely, or probable (associated with a specific diagnosis that is being evaluated, monitored, or treated as if it exists) are acceptable and can be restated in the discharge summary if not ruled out. MTDD
== END 2017-06-19 14:47 | disposition home or self-care (01) | DRG 379 ==
LOC: N.2E → SUATTDRO 16:49 → OBSVTOIN 16:49
PROVIDERS: ADMIT Internal Medicine; ATTEND Internal Medicine Infectious Disease
PROC: COLONBX (2017-06-18 12:05)

== ENCOUNTER 2017-12-01 08:06 | Observation (INO) ==
[2017-12-01] MEDS ORDERED: IMMUNE GLOBULIN 10% 40 GM in PREMIX 1 EACH IV ONE (09:30)
[2017-12-01] MEDS ORDERED: diphenhydrAMINE 50 MG/1 ML VIAL IV SCH (09:30)
[2017-12-01] MEDS ORDERED: SODIUM CHLORIDE 0.9% 1,000 ML IV SCH (09:30)
[2017-12-01] MEDS ORDERED: ACETAMINOPHEN 325 MG TABLET PO SCH (09:30)
[2017-12-01 10:46] LABS: Basophils # 0.1 10*3/uL (0.0-0.2); Basophils % 0.9 % (0.0-0.8); Eosinophils # 0.3 10*3/uL (0.0-0.87); Eosinophils % 4.7 % (0.00-10.9); Hematocrit 36.7 VOL% (35.7-47.0); Hemoglobin 12.1 GM/DL (12.0-16.0); Immature Granulocytes % 0.4 %; Immature Granulocytes Absolute 0.02 #; Lymphocytes # 1.4 10*3/uL (1.4-4.0); Lymphocytes % 25.4 % (21.3-54.2); Mean Corpuscular Hemoglobin 34 PG (27-34); Mean Corpuscular Volume 101.9 FL (87-102); Mean Platelet Volume 11.7 FL (9.6-12.0); Monocytes # 0.5 10*3/uL (0.11-0.8); Monocytes % 8.1 % (1.7-12.7); Neutrophils # 3.4 10*3/uL (1.4-7.4); Neutrophils % 60.5 % (38.7-73.9); Platelet Count 188 T/CUMM (130-400); Red Cell Distribution Width 14.2 % (9.3-17.3); White Blood Count 5.6 T/CUMM (4-12)
[2017-12-01 11:17] LABS: Alanine Aminotransferase 29 U/L (13-56); Albumin 3.3 G/DL (3.4-5.0); Alkaline Phosphatase 149 U/L (45-117); Aspartate Amino Transferase 23 U/L (0-37); Bilirubin,Total < 0.39 MG/DL (0.2-1.0); Blood Urea Nitrogen 35 MG/DL (7-18); Calcium 8.6 MG/DL (8.5-10.1); Glucose 128 MG/DL (74-106); Osmolality,Calculated 288.4 MOS/KG (273-304); Potassium 3.9 MMOL/L (3.5-5.1); Sodium 140 MMOL/L (136-145)
[2017-12-01] MEDS ORDERED: BENZONATATE 100 MG CAPSULE PO PRN (13:37)
[2017-12-01] MEDS ORDERED: ALBUTEROL 2.5 MG/3 ML NEB RESP TX PRN (14:30)
[2017-12-01] MEDS: PYRIDOSTIGMINE 60 MG TABLET PO SCH ×2 (16:52→21:15)
[2017-12-01] MEDS ORDERED: SERTRALINE 100 MG TABLET PO SCH (21:00)
[2017-12-01] MEDS ORDERED: PRAMIPEXOLE 1 MG TABLET PO SCH (21:00)
[2017-12-01] MEDS: MAGNESIUM CHLORIDE 64 MG TABLET PO SCH (21:15)
[2017-12-01] MEDS: APIXABAN 5 MG TABLET PO SCH (21:15)
[2017-12-01] MEDS: ASCORBIC ACID 500 MG TABLET PO SCH (21:15)
[2017-12-01] MEDS: BUDESONIDE/FORMOTEROL 160-4.5 INHALER 6 GM INH SCH (21:16)
[2017-12-01] MEDS: SOTALOL 80 MG TABLET PO SCH (21:16)
[2017-12-01] MEDS: cycloSPORINE OPH EMUL 1 VIAL BOTH EYES SCH (21:17)
[2017-12-01] MEDS ORDERED: DILTIAZEM CD 180 MG CAPSULE PO SCH (22:00)
[2017-12-01 22:18] LABS: Apearance,Urine CLEAR (Clear); Bacteria,Urine Occasional /HPF (Few); Bilirubin,Urine Negative (Negative); Blood, Urine Negative (Negative); Glucose,Urine (UA) Negative (Negative); Ketones,Urine Negative (Negative); Mucus,Urine Occasional /LPF (Occasional); Nitrite,Urine Negative (Negative); Protein,Urine Negative; RBC,Urine 1 /HPF (0-4); Squamous Epithelial Cell,Urine Occasional /HPF (0-10); Urine Color Straw (Yellow); Urine Specific Gravity 1.012 (1.001-1.035); Urine Urobilinogen < 2.0 EU/DL (0.2-1.0); WBC,Urine 2 /HPF (0-6)
[2017-12-02] MEDS ORDERED: LEVOTHYROXINE 150 MCG TABLET PO SCH (07:00)
[2017-12-02] MEDS: ASCORBIC ACID 500 MG TABLET PO SCH (08:59)
[2017-12-02] MEDS ORDERED: ASPIRIN EC 81 MG TABLET PO SCH (09:00)
[2017-12-02] MEDS ORDERED: MULTIVITAMIN (BEROCCA) TABLET PO SCH (09:00)
[2017-12-02] MEDS ORDERED: COLCHICINE 0.6 MG TABLET PO SCH (09:00)
[2017-12-02] MEDS ORDERED: CHOLECALCIFEROL 5,000 UNIT TABLET PO SCH (09:00)
[2017-12-02] MEDS ORDERED: PANTOPRAZOLE 40 MG TABLET PO SCH (09:00)
[2017-12-02] MEDS ORDERED: FLUTICASONE 50 MCG NASAL SPRAY 16 GM BOTTLE BOTH NARES SCH (09:00)
[2017-12-02] MEDS ORDERED: FUROSEMIDE 40 MG TABLET PO SCH (09:00)
[2017-12-02] MEDS ORDERED: COENZYME Q10 100 MG CAPSULE PO SCH (09:00)
[2017-12-02] MEDS ORDERED: ALLOPURINOL 300 MG TABLET PO SCH (09:00)
[2017-12-02] MEDS ORDERED: SPIRONOLACTONE 25 MG TABLET PO SCH (09:00)
[2017-12-02] MEDS: PYRIDOSTIGMINE 60 MG TABLET PO SCH (09:01)
[2017-12-02] MEDS: APIXABAN 5 MG TABLET PO SCH (09:01)
[2017-12-02] MEDS: SOTALOL 80 MG TABLET PO SCH (09:01)
[2017-12-02] MEDS: MAGNESIUM CHLORIDE 64 MG TABLET PO SCH (09:03)
[2017-12-02] MEDS: cycloSPORINE OPH EMUL 1 VIAL BOTH EYES SCH (09:07)
[2017-12-02] MEDS: BUDESONIDE/FORMOTEROL 160-4.5 INHALER 6 GM INH SCH (09:07)
[2017-12-02] MEDS ORDERED: HEPARIN LOCK FLUSH 500 UNIT/5 ML SYRINGE IV ONE (11:48)
[2017-12-02 12:17] VITALS: BP 166/79
== END 2017-12-02 13:05 | disposition home or self-care (01) ==
LOC: N.4EOUT 08:06 → N.4E 08:06
PROVIDERS: ADMIT Internal Medicine; ATTEND Internal Medicine

== ENCOUNTER 2017-12-15 08:00 | Observation (INO) ==
[2017-12-15 15:19] LABS: Basophils # 0.1 10*3/uL (0.0-0.2); Basophils % 1.1 % (0.0-0.8); Eosinophils # 0.2 10*3/uL (0.0-0.87); Eosinophils % 3.1 % (0.00-10.9); Hematocrit 36.5 VOL% (35.7-47.0); Hemoglobin 12.3 GM/DL (12.0-16.0); Immature Granulocytes % 0.5 %; Immature Granulocytes Absolute 0.04 #; Lymphocytes # 1.9 10*3/uL (1.4-4.0); Lymphocytes % 25.9 % (21.3-54.2); Mean Corpuscular HGB Conc 33.7 GM/DL (32-36); Mean Corpuscular Hemoglobin 35 PG (27-34); Mean Corpuscular Volume 102.5 FL (87-102); Mean Platelet Volume 11.7 FL (9.6-12.0); Monocytes # 0.5 10*3/uL (0.11-0.8); Monocytes % 6.3 % (1.7-12.7); Neutrophils # 4.6 10*3/uL (1.4-7.4); Neutrophils % 63.1 % (38.7-73.9); Platelet Count 199 T/CUMM (130-400); Red Blood Count 3.56 MC/CUMM (3.8-5.5); Red Cell Distribution Width 14.1 % (9.3-17.3); White Blood Count 7.3 T/CUMM (4-12)
[2017-12-15] MEDS ORDERED: ACETAMINOPHEN 325 MG TABLET PO ONE (15:30)
[2017-12-15] MEDS ORDERED: SODIUM CHLORIDE 0.9% 1,000 ML IV ONE (15:30)
[2017-12-15] MEDS ORDERED: IMMUNE GLOBULIN 10% 40 GM in PREMIX 1 EACH IV ONE (15:30)
[2017-12-15] MEDS ORDERED: diphenhydrAMINE 50 MG/1 ML VIAL IV ONE (15:30)
[2017-12-15 15:53] LABS: Albumin 3.4 G/DL (3.4-5.0); Bilirubin,Total 0.8 MG/DL (0.2-1.0); Calcium 8.5 MG/DL (8.5-10.1); Osmolality,Calculated 288.4 MOS/KG (273-304); Total Protein 6.9 G/DL (6.4-8.3)
[2017-12-15] MEDS ORDERED: COLCHICINE 0.6 MG TABLET PO PRN (16:57)
[2017-12-15] MEDS ORDERED: ALBUTEROL 2.5 MG/3 ML NEB RESP TX PRN (16:57)
[2017-12-15] MEDS ORDERED: BENZONATATE 100 MG CAPSULE PO PRN (16:57)
[2017-12-15] MEDS ORDERED: DILTIAZEM CD 180 MG CAPSULE PO SCH (21:00)
[2017-12-15] MEDS ORDERED: PRAMIPEXOLE 1 MG TABLET PO SCH (21:00)
[2017-12-15] MEDS ORDERED: COENZYME Q10 100 MG CAPSULE PO SCH (21:00)
[2017-12-15] MEDS ORDERED: SERTRALINE 100 MG TABLET PO SCH (21:00)
[2017-12-15] MEDS ORDERED: SPIRONOLACTONE 25 MG TABLET PO SCH (21:00)
[2017-12-15] MEDS: SOTALOL 80 MG TABLET PO SCH (21:22)
[2017-12-15] MEDS: MAGNESIUM CHLORIDE 64 MG TABLET PO SCH (21:22)
[2017-12-15] MEDS: PYRIDOSTIGMINE 60 MG TABLET PO SCH (21:23)
[2017-12-15] MEDS: ASCORBIC ACID 500 MG TABLET PO SCH (21:24)
[2017-12-15] MEDS: APIXABAN 5 MG TABLET PO SCH (21:24)
[2017-12-15] MEDS: BUDESONIDE/FORMOTEROL 160-4.5 INHALER 6 GM INH SCH (21:31)
[2017-12-15] MEDS: FLUTICASONE 50 MCG NASAL SPRAY 16 GM BOTTLE BOTH NARES SCH (21:34)
[2017-12-15] MEDS: cycloSPORINE OPH EMUL 1 VIAL BOTH EYES SCH (21:37)
[2017-12-16 00:53] LABS: Apearance,Urine CLEAR (Clear); Bacteria,Urine Occasional /HPF (Few); Bilirubin,Urine Negative (Negative); Blood, Urine Negative (Negative); Glucose,Urine (UA) Negative (Negative); Hyaline Casts,Urine 1 /LPF (0-3); Ketones,Urine Negative (Negative); Nitrite,Urine Negative (Negative); Protein,Urine Negative; RBC,Urine <1 /HPF (0-4); Squamous Epithelial Cell,Urine Occasional /HPF (0-10); Urine Color Yellow (Yellow); Urine Specific Gravity 1.014 (1.001-1.035); Urine Urobilinogen < 2.0 EU/DL (0.2-1.0); WBC,Urine 1 /HPF (0-6)
[2017-12-16] MEDS ORDERED: LEVOTHYROXINE 150 MCG TABLET PO SCH (07:00)
[2017-12-16] MEDS: SOTALOL 80 MG TABLET PO SCH (08:57)
[2017-12-16] MEDS: MAGNESIUM CHLORIDE 64 MG TABLET PO SCH (08:57)
[2017-12-16] MEDS: ASCORBIC ACID 500 MG TABLET PO SCH (08:58)
[2017-12-16] MEDS: PYRIDOSTIGMINE 60 MG TABLET PO SCH (08:58)
[2017-12-16] MEDS: FLUTICASONE 50 MCG NASAL SPRAY 16 GM BOTTLE BOTH NARES SCH (08:59)
[2017-12-16] MEDS: APIXABAN 5 MG TABLET PO SCH (08:59)
[2017-12-16] MEDS ORDERED: ALLOPURINOL 300 MG TABLET PO SCH (09:00)
[2017-12-16] MEDS ORDERED: FUROSEMIDE 40 MG TABLET PO SCH (09:00)
[2017-12-16] MEDS ORDERED: ASPIRIN EC 81 MG TABLET PO SCH (09:00)
[2017-12-16] MEDS ORDERED: CHOLECALCIFEROL 5,000 UNIT TABLET PO SCH (09:00)
[2017-12-16] MEDS: BUDESONIDE/FORMOTEROL 160-4.5 INHALER 6 GM INH SCH (09:00)
[2017-12-16] MEDS ORDERED: MULTIVITAMIN (BEROCCA) TABLET PO SCH (09:00)
[2017-12-16] MEDS ORDERED: PANTOPRAZOLE 40 MG TABLET PO SCH (09:00)
[2017-12-16] MEDS: cycloSPORINE OPH EMUL 1 VIAL BOTH EYES SCH (09:04)
[2017-12-16 10:26] VITALS: BP 143/76
[2017-12-16] MEDS ORDERED: HEPARIN LOCK FLUSH 500 UNIT/5 ML SYRINGE IV ONE (11:45)
== END 2017-12-16 13:00 | disposition home or self-care (01) ==
LOC: N.4E → EDSTATUS 08:00
PROVIDERS: ADMIT Internal Medicine; ATTEND Internal Medicine

== ENCOUNTER 2017-12-29 07:00 | Observation (INO) ==
[2017-12-29] MEDS ORDERED: diphenhydrAMINE 50 MG/1 ML VIAL IV ONE (09:30)
[2017-12-29] MEDS ORDERED: SODIUM CHLORIDE 0.9% 1,000 ML IV ONE (09:30)
[2017-12-29] MEDS ORDERED: ACETAMINOPHEN 325 MG TABLET PO ONE (09:30)
[2017-12-29] MEDS ORDERED: IMMUNE GLOBULIN 10% 40 GM in PREMIX 1 EACH IV ONE (09:30)
[2017-12-29 09:34] LABS: Basophils # 0.1 10*3/uL (0.0-0.2); Basophils % 1.1 % (0.0-0.8); Eosinophils # 0.3 10*3/uL (0.0-0.87); Eosinophils % 4.1 % (0.00-10.9); Hematocrit 37.8 VOL% (35.7-47.0); Hemoglobin 12.3 GM/DL (12.0-16.0); Immature Granulocytes % 0.6 %; Immature Granulocytes Absolute 0.04 #; Lymphocytes # 1.8 10*3/uL (1.4-4.0); Lymphocytes % 27.6 % (21.3-54.2); Mean Corpuscular HGB Conc 32.5 GM/DL (32-36); Mean Corpuscular Hemoglobin 33 PG (27-34); Mean Corpuscular Volume 101.9 FL (87-102); Mean Platelet Volume 11.4 FL (9.6-12.0); Monocytes # 0.5 10*3/uL (0.11-0.8); Monocytes % 7.7 % (1.7-12.7); Neutrophils # 3.9 10*3/uL (1.4-7.4); Neutrophils % 58.9 % (38.7-73.9); Platelet Count 194 T/CUMM (130-400); Red Blood Count 3.71 MC/CUMM (3.8-5.5); Red Cell Distribution Width 14.2 % (9.3-17.3); White Blood Count 6.6 T/CUMM (4-12)
[2017-12-29 09:48] LABS: Alanine Aminotransferase 34 U/L (13-56); Albumin 3.4 G/DL (3.4-5.0); Alkaline Phosphatase 151 U/L (45-117); Aspartate Amino Transferase 29 U/L (0-37); Bilirubin,Total < 0.39 MG/DL (0.2-1.0); Blood Urea Nitrogen 39 MG/DL (7-18); Glucose 109 MG/DL (74-106); Potassium 4.4 MMOL/L (3.5-5.1); Sodium 136 MMOL/L (136-145); Total Protein 7.5 G/DL (6.4-8.3)
[2017-12-29] MEDS ORDERED: BENZONATATE 100 MG CAPSULE PO PRN (11:48)
[2017-12-29] MEDS ORDERED: COLCHICINE 0.6 MG TABLET PO PRN (11:48)
[2017-12-29] MEDS ORDERED: ALBUTEROL 2.5 MG/3 ML NEB RESP TX PRN (13:00)
[2017-12-29] MEDS: PYRIDOSTIGMINE 60 MG TABLET PO SCH ×2 (15:19→21:09)
[2017-12-29] MEDS ORDERED: DILTIAZEM CD 180 MG CAPSULE PO SCH (21:00)
[2017-12-29] MEDS ORDERED: PRAMIPEXOLE 1 MG TABLET PO SCH (21:00)
[2017-12-29] MEDS ORDERED: SERTRALINE 100 MG TABLET PO SCH (21:00)
[2017-12-29] MEDS ORDERED: FORMOTEROL PO SCH (21:00)
[2017-12-29] MEDS ORDERED: UBIDECARENONE 400 MG PO SCH (21:00)
[2017-12-29] MEDS ORDERED: BUDESONIDE PO SCH (21:00)
[2017-12-29] MEDS ORDERED: SPIRONOLACTONE 25 MG TABLET PO SCH (21:00)
[2017-12-29] MEDS: MAGNESIUM CHLORIDE 64 MG TABLET PO SCH (21:08)
[2017-12-29] MEDS: APIXABAN 5 MG TABLET PO SCH (21:09)
[2017-12-29] MEDS: ASCORBIC ACID 500 MG TABLET PO SCH (21:09)
[2017-12-29] MEDS: SOTALOL 80 MG TABLET PO SCH (21:09)
[2017-12-29] MEDS: FLUTICASONE 50 MCG NASAL SPRAY 16 GM BOTTLE BOTH NARES SCH (21:11)
[2017-12-29] MEDS: cycloSPORINE OPH EMUL 1 VIAL BOTH EYES SCH (21:15)
[2017-12-29] MEDS ORDERED: hydrALAZINE 20 MG/1 ML VIAL IV PRN (22:09)
[2017-12-30] MEDS ORDERED: LEVOTHYROXINE 150 MCG TABLET PO SCH (06:30)
[2017-12-30] MEDS ORDERED: CHOLECALCIFEROL 1,000 UNIT TABLET PO SCH (09:00)
[2017-12-30] MEDS ORDERED: ASPIRIN EC 81 MG TABLET PO SCH (09:00)
[2017-12-30] MEDS ORDERED: FUROSEMIDE 40 MG TABLET PO SCH (09:00)
[2017-12-30] MEDS ORDERED: ALLOPURINOL 300 MG TABLET PO SCH (09:00)
[2017-12-30] MEDS ORDERED: PANTOPRAZOLE 40 MG TABLET PO SCH (09:00)
[2017-12-30] MEDS ORDERED: MULTIVITAMIN (BEROCCA) TABLET PO SCH (09:00)
[2017-12-30] MEDS ORDERED: HEPARIN LOCK FLUSH 500 UNIT/5 ML SYRINGE IV ONE (09:12)
[2017-12-30 09:30] VITALS: BP 167/73
[2017-12-30] MEDS: PYRIDOSTIGMINE 60 MG TABLET PO SCH (09:46)
[2017-12-30] MEDS: ASCORBIC ACID 500 MG TABLET PO SCH (09:46)
[2017-12-30] MEDS: FLUTICASONE 50 MCG NASAL SPRAY 16 GM BOTTLE BOTH NARES SCH (09:46)
[2017-12-30] MEDS: SOTALOL 80 MG TABLET PO SCH (09:46)
[2017-12-30] MEDS: APIXABAN 5 MG TABLET PO SCH (09:46)
[2017-12-30] MEDS: MAGNESIUM CHLORIDE 64 MG TABLET PO SCH (09:46)
[2017-12-30] MEDS: cycloSPORINE OPH EMUL 1 VIAL BOTH EYES SCH (09:50)
[2017-12-30 11:10] LABS: Apearance,Urine CLEAR (Clear); Bilirubin,Urine Negative (Negative); Blood, Urine Negative (Negative); Glucose,Urine (UA) Negative (Negative); Ketones,Urine Negative (Negative); Mucus,Urine Occasional /LPF (Occasional); Nitrite,Urine Negative (Negative); Protein,Urine Negative; RBC,Urine <1 /HPF (0-4); Squamous Epithelial Cell,Urine Occasional /HPF (0-10); Urine Color Straw (Yellow); Urine Specific Gravity 1.013 (1.001-1.035); Urine Urobilinogen < 2.0 EU/DL (0.2-1.0); WBC,Urine 1 /HPF (0-6)
== END 2017-12-30 13:21 | disposition home or self-care (01) ==
LOC: N.4E → EDSTATUS 07:00
PROVIDERS: ADMIT Internal Medicine; ATTEND Internal Medicine

== ENCOUNTER 2018-01-12 09:00 | Observation (INO) ==
[2018-01-12] MEDS ORDERED: ALBUTEROL/IPRATROPIUM 3 ML NEB RESP TX PRN (09:18)
[2018-01-12] MEDS ORDERED: predniSONE 20 MG TABLET PO PRN (09:19)
[2018-01-12] MEDS ORDERED: ALBUTEROL SULFATE INH PRN (09:19)
[2018-01-12] MEDS ORDERED: COLCHICINE 0.6 MG TABLET PO PRN (09:19)
[2018-01-12] MEDS ORDERED: BENZONATATE 100 MG CAPSULE PO PRN (09:19)
[2018-01-12 09:40] LABS: Apearance,Urine Slightly Hazy (Clear); Bacteria,Urine Occasional /HPF (Few); Bilirubin,Urine Negative (Negative); Blood, Urine Negative (Negative); Glucose,Urine (UA) Negative (Negative); Hyaline Casts,Urine 1 /LPF (0-3); Ketones,Urine Negative (Negative); Mucus,Urine Occasional /LPF (Occasional); Nitrite,Urine Negative (Negative); Protein,Urine Negative; RBC,Urine 1 /HPF (0-4); Squamous Epithelial Cell,Urine Occasional /HPF (0-10); Urine Color Yellow (Yellow); Urine Specific Gravity 1.013 (1.001-1.035); Urine Urobilinogen < 2.0 EU/DL (0.2-1.0); WBC,Urine 1 /HPF (0-6)
[2018-01-12 09:44] LABS: Basophils # 0.1 10*3/uL (0.0-0.2); Eosinophils # 0.3 10*3/uL (0.0-0.87); Eosinophils % 4.6 % (0.00-10.9); Hematocrit 36.9 VOL% (35.7-47.0); Hemoglobin 12.1 GM/DL (12.0-16.0); Immature Granulocytes % 0.5 %; Immature Granulocytes Absolute 0.03 #; Lymphocytes # 1.6 10*3/uL (1.4-4.0); Lymphocytes % 26.7 % (21.3-54.2); Mean Corpuscular HGB Conc 32.8 GM/DL (32-36); Mean Corpuscular Hemoglobin 33 PG (27-34); Mean Corpuscular Volume 101.1 FL (87-102); Mean Platelet Volume 12.4 FL (9.6-12.0); Monocytes # 0.4 10*3/uL (0.11-0.8); Monocytes % 7.5 % (1.7-12.7); Neutrophils # 3.5 10*3/uL (1.4-7.4); Neutrophils % 59.7 % (38.7-73.9); Platelet Count 174 T/CUMM (130-400); Red Blood Count 3.65 MC/CUMM (3.8-5.5); Red Cell Distribution Width 14.6 % (9.3-17.3); White Blood Count 5.9 T/CUMM (4-12)
[2018-01-12] MEDS ORDERED: ACETAMINOPHEN 325 MG TABLET PO ONE (10:00)
[2018-01-12] MEDS ORDERED: diphenhydrAMINE 50 MG/1 ML VIAL IV ONE (10:00)
[2018-01-12] MEDS ORDERED: IMMUNE GLOBULIN 10% 40 GM in PREMIX 1 EACH IV ONE (10:00)
[2018-01-12] MEDS ORDERED: SODIUM CHLORIDE 0.9% 1,000 ML IV ONE (10:00)
[2018-01-12 10:12] LABS: Alanine Aminotransferase 30 U/L (13-56); Albumin 3.1 G/DL (3.4-5.0); Alkaline Phosphatase 142 U/L (45-117); Amylase 57 U/L (25-115); Aspartate Amino Transferase 22 U/L (0-37); Bilirubin,Total < 0.39 MG/DL (0.2-1.0); Blood Urea Nitrogen 35 MG/DL (7-18); Calcium 8.7 MG/DL (8.5-10.1); Glucose 109 MG/DL (74-106); Osmolality,Calculated 285.5 MOS/KG (273-304); Potassium 4.3 MMOL/L (3.5-5.1); Sodium 139 MMOL/L (136-145); Total Protein 6.9 G/DL (6.4-8.3); Triglycerides 325 MG/DL (2-150)
[2018-01-12] MEDS: PYRIDOSTIGMINE 60 MG TABLET PO SCH ×2 (15:30→21:50)
[2018-01-12] MEDS: INSULIN LISPRO 100 UNIT/ML SUBCUT SCH (16:32)
[2018-01-12] MEDS ORDERED: PRAMIPEXOLE 1 MG TABLET PO SCH (21:00)
[2018-01-12] MEDS ORDERED: BUDESONIDE/FORMOTEROL 160-4.5 INHALER 6 GM INH SCH (21:00)
[2018-01-12] MEDS ORDERED: SERTRALINE 100 MG TABLET PO SCH (21:00)
[2018-01-12] MEDS ORDERED: SPIRONOLACTONE 25 MG TABLET PO SCH (21:00)
[2018-01-12] MEDS ORDERED: COENZYME Q10 100 MG CAPSULE PO SCH (21:00)
[2018-01-12] MEDS: APIXABAN 5 MG TABLET PO SCH (21:49)
[2018-01-12] MEDS: CARVEDILOL 25 MG TABLET PO SCH (21:50)
[2018-01-12] MEDS: MAGNESIUM CHLORIDE 64 MG TABLET PO SCH (21:50)
[2018-01-12] MEDS: ASCORBIC ACID 500 MG TABLET PO SCH (21:50)
[2018-01-12] MEDS: SOTALOL 80 MG TABLET PO SCH (21:50)
[2018-01-12] MEDS: cycloSPORINE OPH EMUL 1 VIAL BOTH EYES SCH (21:53)
[2018-01-12] MEDS: FLUTICASONE 50 MCG NASAL SPRAY 16 GM BOTTLE BOTH NARES SCH (21:53)
[2018-01-13] MEDS ORDERED: LEVOTHYROXINE 150 MCG TABLET PO SCH (07:00)
[2018-01-13] MEDS: INSULIN LISPRO 100 UNIT/ML SUBCUT SCH (08:58)
[2018-01-13] MEDS ORDERED: CHOLECALCIFEROL 1,000 UNIT TABLET PO SCH (09:00)
[2018-01-13] MEDS: ASCORBIC ACID 500 MG TABLET PO SCH (09:00)
[2018-01-13] MEDS ORDERED: PANTOPRAZOLE 40 MG TABLET PO SCH (09:00)
[2018-01-13] MEDS: MAGNESIUM CHLORIDE 64 MG TABLET PO SCH (09:00)
[2018-01-13] MEDS ORDERED: MULTIVITAMIN (BEROCCA) TABLET PO SCH (09:00)
[2018-01-13] MEDS: PYRIDOSTIGMINE 60 MG TABLET PO SCH (09:00)
[2018-01-13] MEDS: APIXABAN 5 MG TABLET PO SCH (09:00)
[2018-01-13] MEDS ORDERED: FUROSEMIDE 40 MG TABLET PO SCH (09:00)
[2018-01-13] MEDS ORDERED: ALLOPURINOL 300 MG TABLET PO SCH (09:00)
[2018-01-13] MEDS ORDERED: ASPIRIN EC 81 MG TABLET PO SCH (09:00)
[2018-01-13] MEDS: CARVEDILOL 25 MG TABLET PO SCH (09:01)
[2018-01-13] MEDS: cycloSPORINE OPH EMUL 1 VIAL BOTH EYES SCH (09:01)
[2018-01-13] MEDS: FLUTICASONE 50 MCG NASAL SPRAY 16 GM BOTTLE BOTH NARES SCH (09:01)
[2018-01-13] MEDS: SOTALOL 80 MG TABLET PO SCH (09:01)
[2018-01-13 11:36] VITALS: BP 186/81
[2018-01-13] MEDS ORDERED: HEPARIN LOCK FLUSH 500 UNIT/5 ML SYRINGE IV ONE (12:00)
== END 2018-01-13 12:45 | disposition home or self-care (01) ==
LOC: N.4E
PROVIDERS: ADMIT Internal Medicine; ATTEND Internal Medicine

== ENCOUNTER 2018-01-26 07:00 | Observation (INO) ==
[2018-01-26] MEDS ORDERED: diphenhydrAMINE CAP 25 MG CAPSULE PO ONE (10:00)
[2018-01-26] MEDS ORDERED: IMMUNE GLOBULIN 10% 40 GM in PREMIX 1 EACH IV ONE (10:00)
[2018-01-26] MEDS ORDERED: ACETAMINOPHEN 325 MG TABLET PO ONE (10:00)
[2018-01-26] MEDS ORDERED: SODIUM CHLORIDE 0.9% 1,000 ML IV ONE (10:00)
[2018-01-26 10:06] LABS: Basophils # 0.1 10*3/uL (0.0-0.2); Eosinophils # 0.2 10*3/uL (0.0-0.87); Eosinophils % 4.5 % (0.00-10.9); Hematocrit 37.6 VOL% (35.7-47.0); Hemoglobin 12.3 GM/DL (12.0-16.0); Immature Granulocytes % 0.2 %; Immature Granulocytes Absolute 0.01 #; Lymphocytes # 1.4 10*3/uL (1.4-4.0); Lymphocytes % 29.6 % (21.3-54.2); Mean Corpuscular HGB Conc 32.7 GM/DL (32-36); Mean Corpuscular Hemoglobin 33 PG (27-34); Mean Corpuscular Volume 100.5 FL (87-102); Mean Platelet Volume 11.9 FL (9.6-12.0); Monocytes # 0.4 10*3/uL (0.11-0.8); Monocytes % 8.8 % (1.7-12.7); Neutrophils # 2.7 10*3/uL (1.4-7.4); Neutrophils % 55.9 % (38.7-73.9); Platelet Count 157 T/CUMM (130-400); Red Blood Count 3.74 MC/CUMM (3.8-5.5); Red Cell Distribution Width 14.8 % (9.3-17.3); White Blood Count 4.9 T/CUMM (4-12)
[2018-01-26 10:40] LABS: Alanine Aminotransferase 31 U/L (13-56); Albumin 3.2 G/DL (3.4-5.0); Alkaline Phosphatase 136 U/L (45-117); Amylase 71 U/L (25-115); Aspartate Amino Transferase 26 U/L (0-37); Bilirubin,Total < 0.39 MG/DL (0.2-1.0); Blood Urea Nitrogen 37 MG/DL (7-18); Calcium 8.5 MG/DL (8.5-10.1); Glucose 92 MG/DL (74-106); Osmolality,Calculated 283.7 MOS/KG (273-304); Potassium 5.1 MMOL/L (3.5-5.1); Sodium 138 MMOL/L (136-145); Total Protein 6.9 G/DL (6.4-8.3)
[2018-01-26] MEDS ORDERED: BENZONATATE 100 MG CAPSULE PO PRN (16:36)
[2018-01-26] MEDS ORDERED: COLCHICINE 0.6 MG TABLET PO PRN (16:36)
[2018-01-26] MEDS ORDERED: predniSONE 20 MG TABLET PO PRN (16:36)
[2018-01-26] MEDS ORDERED: ALBUTEROL 2.5 MG/3 ML NEB RESP TX PRN (16:36)
[2018-01-26] MEDS ORDERED: cloNIDine 0.1 MG TABLET PO PRN (16:48)
[2018-01-26] MEDS ORDERED: PYRIDOSTIGMINE 60 MG TABLET PO ONE (17:00)
[2018-01-26] MEDS ORDERED: COENZYME Q10 100 MG CAPSULE PO SCH (21:00)
[2018-01-26] MEDS ORDERED: SERTRALINE 100 MG TABLET PO SCH (21:00)
[2018-01-26] MEDS ORDERED: SPIRONOLACTONE 25 MG TABLET PO SCH (21:00)
[2018-01-26] MEDS ORDERED: PRAMIPEXOLE 1 MG TABLET PO SCH (21:00)
[2018-01-26] MEDS: MAGNESIUM CHLORIDE 64 MG TABLET PO SCH (21:12)
[2018-01-26] MEDS: ASCORBIC ACID 500 MG TABLET PO SCH (21:12)
[2018-01-26] MEDS: SOTALOL 80 MG TABLET PO SCH (21:12)
[2018-01-26] MEDS: CARVEDILOL 25 MG TABLET PO SCH (21:12)
[2018-01-26] MEDS: PYRIDOSTIGMINE 60 MG TABLET PO SCH (21:13)
[2018-01-26] MEDS: APIXABAN 5 MG TABLET PO SCH (21:13)
[2018-01-26] MEDS: FLUTICASONE 50 MCG NASAL SPRAY 16 GM BOTTLE BOTH NARES SCH (21:14)
[2018-01-26] MEDS: cycloSPORINE OPH EMUL 1 VIAL BOTH EYES SCH (21:14)
[2018-01-26] MEDS: BUDESONIDE/FORMOTEROL 160-4.5 INHALER 6 GM INH SCH (21:17)
[2018-01-27] MEDS ORDERED: LEVOTHYROXINE 150 MCG TABLET PO SCH (07:00)
[2018-01-27] MEDS ORDERED: HEPARIN LOCK FLUSH 500 UNIT/5 ML SYRINGE IV ONE (08:19)
[2018-01-27] MEDS ORDERED: CHOLECALCIFEROL 1,000 UNIT TABLET PO SCH (09:00)
[2018-01-27] MEDS ORDERED: ALLOPURINOL 300 MG TABLET PO SCH (09:00)
[2018-01-27] MEDS ORDERED: PANTOPRAZOLE 40 MG TABLET PO SCH (09:00)
[2018-01-27] MEDS ORDERED: ASPIRIN EC 81 MG TABLET PO SCH (09:00)
[2018-01-27] MEDS ORDERED: MULTIVITAMIN (BEROCCA) TABLET PO SCH (09:00)
[2018-01-27] MEDS ORDERED: FUROSEMIDE 40 MG TABLET PO SCH (09:00)
[2018-01-27] MEDS: SOTALOL 80 MG TABLET PO SCH (09:22)
[2018-01-27] MEDS: ASCORBIC ACID 500 MG TABLET PO SCH (09:22)
[2018-01-27] MEDS: MAGNESIUM CHLORIDE 64 MG TABLET PO SCH (09:22)
[2018-01-27] MEDS: CARVEDILOL 25 MG TABLET PO SCH (09:23)
[2018-01-27] MEDS: PYRIDOSTIGMINE 60 MG TABLET PO SCH (09:23)
[2018-01-27] MEDS: APIXABAN 5 MG TABLET PO SCH (09:23)
[2018-01-27] MEDS: FLUTICASONE 50 MCG NASAL SPRAY 16 GM BOTTLE BOTH NARES SCH (09:23)
[2018-01-27] MEDS: BUDESONIDE/FORMOTEROL 160-4.5 INHALER 6 GM INH SCH (09:24)
[2018-01-27] MEDS: cycloSPORINE OPH EMUL 1 VIAL BOTH EYES SCH (09:24)
[2018-01-27 10:28] VITALS: BP 162/77
== END 2018-01-27 13:15 | disposition home or self-care (01) ==
LOC: INTOOBSV 08:11 → N.4E 08:11
PROVIDERS: ADMIT Internal Medicine; ATTEND Internal Medicine

== ENCOUNTER 2018-02-09 07:00 | Observation (INO) ==
[2018-02-09] MEDS ORDERED: SODIUM CHLORIDE 0.9% 1,000 ML IV ONE (11:00)
[2018-02-09] MEDS ORDERED: IMMUNE GLOBULIN 10% 40 GM in PREMIX 1 EACH IV ONE (11:00)
[2018-02-09] MEDS ORDERED: diphenhydrAMINE CAP 25 MG CAPSULE PO ONE (11:00)
[2018-02-09] MEDS ORDERED: ACETAMINOPHEN 325 MG TABLET PO ONE (11:00)
[2018-02-09 13:06] LABS: Basophils # 0.1 10*3/uL (0.0-0.2); Eosinophils # 0.2 10*3/uL (0.0-0.87); Eosinophils % 3.3 % (0.00-10.9); Hematocrit 34.8 VOL% (35.7-47.0); Hemoglobin 11.2 GM/DL (12.0-16.0); Immature Granulocytes % 0.4 %; Immature Granulocytes Absolute 0.02 #; Lymphocytes # 1.6 10*3/uL (1.4-4.0); Lymphocytes % 30.5 % (21.3-54.2); Mean Corpuscular HGB Conc 32.2 GM/DL (32-36); Mean Corpuscular Hemoglobin 33 PG (27-34); Mean Corpuscular Volume 103.3 FL (87-102); Mean Platelet Volume 12.7 FL (9.6-12.0); Monocytes # 0.3 10*3/uL (0.11-0.8); Monocytes % 6.1 % (1.7-12.7); Neutrophils % 58.7 % (38.7-73.9); Platelet Count 146 T/CUMM (130-400); Red Blood Count 3.37 MC/CUMM (3.8-5.5); Red Cell Distribution Width 14.9 % (9.3-17.3); White Blood Count 5.1 T/CUMM (4-12)
[2018-02-09] MEDS ORDERED: predniSONE 20 MG TABLET PO PRN (13:29)
[2018-02-09] MEDS ORDERED: BENZONATATE 100 MG CAPSULE PO PRN (13:29)
[2018-02-09] MEDS ORDERED: ALBUTEROL 2.5 MG/3 ML NEB RESP TX PRN (13:29)
[2018-02-09] MEDS ORDERED: COLCHICINE 0.6 MG TABLET PO PRN (13:29)
[2018-02-09 13:30] LABS: Alanine Aminotransferase 29 U/L (13-56); Albumin 2.9 G/DL (3.4-5.0); Alkaline Phosphatase 133 U/L (45-117); Aspartate Amino Transferase 28 U/L (0-37); Bilirubin,Total < 0.39 MG/DL (0.2-1.0); Blood Urea Nitrogen 41 MG/DL (7-18); Glucose 132 MG/DL (74-106); Osmolality,Calculated 284.8 MOS/KG (273-304); Potassium 4.2 MMOL/L (3.5-5.1); Sodium 137 MMOL/L (136-145); Total Protein 6.3 G/DL (6.4-8.3)
[2018-02-09] MEDS: PYRIDOSTIGMINE 60 MG TABLET PO SCH ×2 (15:45→20:55)
[2018-02-09] MEDS: ASCORBIC ACID 500 MG TABLET PO SCH (20:53)
[2018-02-09] MEDS: SOTALOL 80 MG TABLET PO SCH (20:53)
[2018-02-09] MEDS: APIXABAN 5 MG TABLET PO SCH (20:54)
[2018-02-09] MEDS: MAGNESIUM CHLORIDE 64 MG TABLET PO SCH (20:54)
[2018-02-09] MEDS: CARVEDILOL 25 MG TABLET PO SCH (20:55)
[2018-02-09] MEDS: cycloSPORINE OPH EMUL 1 VIAL BOTH EYES SCH (20:57)
[2018-02-09] MEDS: FLUTICASONE 50 MCG NASAL SPRAY 16 GM BOTTLE BOTH NARES SCH (20:58)
[2018-02-09] MEDS ORDERED: BUDESONIDE/FORMOTEROL 160-4.5 INHALER 6 GM INH SCH (21:00)
[2018-02-09] MEDS ORDERED: SPIRONOLACTONE 25 MG TABLET PO SCH (21:00)
[2018-02-09] MEDS ORDERED: PRAMIPEXOLE 1 MG TABLET PO SCH (21:00)
[2018-02-09] MEDS ORDERED: SERTRALINE 100 MG TABLET PO SCH (21:00)
[2018-02-09] MEDS ORDERED: COENZYME Q10 100 MG CAPSULE PO SCH (21:00)
[2018-02-10] MEDS ORDERED: LEVOTHYROXINE 150 MCG TABLET PO SCH (07:00)
[2018-02-10] MEDS: ASCORBIC ACID 500 MG TABLET PO SCH (08:51)
[2018-02-10] MEDS: APIXABAN 5 MG TABLET PO SCH (08:51)
[2018-02-10] MEDS: PYRIDOSTIGMINE 60 MG TABLET PO SCH (08:51)
[2018-02-10] MEDS: MAGNESIUM CHLORIDE 64 MG TABLET PO SCH (08:52)
[2018-02-10] MEDS: CARVEDILOL 25 MG TABLET PO SCH (08:52)
[2018-02-10] MEDS: SOTALOL 80 MG TABLET PO SCH (08:53)
[2018-02-10] MEDS ORDERED: MULTIVITAMIN (BEROCCA) TABLET PO SCH (09:00)
[2018-02-10] MEDS ORDERED: FUROSEMIDE 40 MG TABLET PO SCH (09:00)
[2018-02-10] MEDS ORDERED: PANTOPRAZOLE 40 MG TABLET PO SCH (09:00)
[2018-02-10] MEDS ORDERED: ALLOPURINOL 300 MG TABLET PO SCH (09:00)
[2018-02-10] MEDS ORDERED: ASPIRIN EC 81 MG TABLET PO SCH (09:00)
[2018-02-10] MEDS ORDERED: CHOLECALCIFEROL 1,000 UNIT TABLET PO SCH (09:00)
[2018-02-10] MEDS: FLUTICASONE 50 MCG NASAL SPRAY 16 GM BOTTLE BOTH NARES SCH (09:01)
[2018-02-10] MEDS: cycloSPORINE OPH EMUL 1 VIAL BOTH EYES SCH (09:03)
[2018-02-10 12:17] VITALS: BP 130/72
[2018-02-10] MEDS ORDERED: HEPARIN LOCK FLUSH 500 UNIT/5 ML SYRINGE IV ONE (12:35)
== END 2018-02-10 13:20 | disposition home or self-care (01) ==
LOC: N.4E
PROVIDERS: ADMIT Internal Medicine; ATTEND Internal Medicine

== ENCOUNTER 2018-02-25 07:00 | Observation (INO) ==
[2018-02-25] MEDS ORDERED: ACETAMINOPHEN 325 MG TABLET PO ONE (09:30)
[2018-02-25] MEDS ORDERED: SODIUM CHLORIDE 0.9% 1,000 ML IV ONE (09:30)
[2018-02-25] MEDS ORDERED: IMMUNE GLOBULIN 10% 40 GM in PREMIX 1 EACH IV ONE (09:30)
[2018-02-25] MEDS ORDERED: diphenhydrAMINE 50 MG/1 ML VIAL IV ONE (09:30)
[2018-02-25 10:30] LABS: Basophils # 0.1 10*3/uL (0.0-0.2); Basophils % 1.2 % (0.0-0.8); Eosinophils # 0.2 10*3/uL (0.0-0.87); Hematocrit 35.1 VOL% (35.7-47.0); Hemoglobin 11.5 GM/DL (12.0-16.0); Immature Granulocytes % 0.5 %; Immature Granulocytes Absolute 0.03 #; Lymphocytes # 1.6 10*3/uL (1.4-4.0); Lymphocytes % 27.1 % (21.3-54.2); Mean Corpuscular HGB Conc 32.8 GM/DL (32-36); Mean Corpuscular Hemoglobin 34 PG (27-34); Mean Corpuscular Volume 103.8 FL (87-102); Mean Platelet Volume 12.8 FL (9.6-12.0); Monocytes # 0.4 10*3/uL (0.11-0.8); Monocytes % 6.8 % (1.7-12.7); Neutrophils # 3.5 10*3/uL (1.4-7.4); Neutrophils % 60.4 % (38.7-73.9); Platelet Count 172 T/CUMM (130-400); Red Blood Count 3.38 MC/CUMM (3.8-5.5); Red Cell Distribution Width 15.2 % (9.3-17.3); White Blood Count 5.8 T/CUMM (4-12)
[2018-02-25 10:59] LABS: Alanine Aminotransferase 29 U/L (13-56); Albumin 3.1 G/DL (3.4-5.0); Alkaline Phosphatase 145 U/L (45-117); Aspartate Amino Transferase 32 U/L (0-37); Bilirubin,Total < 0.39 MG/DL (0.2-1.0); Blood Urea Nitrogen 33 MG/DL (7-18); Calcium 8.6 MG/DL (8.5-10.1); Glucose 117 MG/DL (74-106); Osmolality,Calculated 286.4 MOS/KG (273-304); Potassium 4.1 MMOL/L (3.5-5.1); Sodium 140 MMOL/L (136-145); Total Protein 6.9 G/DL (6.4-8.3)
[2018-02-25] MEDS ORDERED: COLCHICINE 0.6 MG TABLET PO PRN (11:35)
[2018-02-25] MEDS ORDERED: BENZONATATE 100 MG CAPSULE PO PRN (11:35)
[2018-02-25] MEDS ORDERED: predniSONE 20 MG TABLET PO PRN (11:35)
[2018-02-25] MEDS ORDERED: ALBUTEROL 2.5 MG/3 ML NEB RESP TX PRN (11:35)
[2018-02-25] MEDS: PYRIDOSTIGMINE 60 MG TABLET PO SCH ×2 (15:46→20:23)
[2018-02-25 20:08] LABS: Apearance,Urine CLEAR (Clear); Bilirubin,Urine Negative (Negative); Blood, Urine Negative (Negative); Glucose,Urine (UA) Negative (Negative); Hyaline Casts,Urine 5 /LPF (0-3); Ketones,Urine Negative (Negative); Mucus,Urine Occasional /LPF (Occasional); Nitrite,Urine Negative (Negative); Protein,Urine Negative; Squamous Epithelial Cell,Urine Occasional /HPF (0-10); Urine Color Yellow (Yellow); Urine Specific Gravity 1.017 (1.001-1.035); Urine Urobilinogen < 2.0 EU/DL (0.2-1.0); WBC,Urine 1 /HPF (0-6)
[2018-02-25] MEDS: SOTALOL 80 MG TABLET PO SCH (20:22)
[2018-02-25] MEDS: APIXABAN 5 MG TABLET PO SCH (20:23)
[2018-02-25] MEDS: BUDESONIDE/FORMOTEROL 160-4.5 INHALER 6 GM INH SCH (20:23)
[2018-02-25] MEDS: CARVEDILOL 25 MG TABLET PO SCH (20:23)
[2018-02-25] MEDS: ASCORBIC ACID 500 MG TABLET PO SCH (20:23)
[2018-02-25] MEDS: MAGNESIUM CHLORIDE 64 MG TABLET PO SCH (20:23)
[2018-02-25] MEDS: cycloSPORINE OPH EMUL 1 VIAL BOTH EYES SCH (20:25)
[2018-02-25] MEDS: FLUTICASONE 50 MCG NASAL SPRAY 16 GM BOTTLE BOTH NARES SCH (20:28)
[2018-02-25] MEDS ORDERED: COENZYME Q10 100 MG CAPSULE PO SCH (21:00)
[2018-02-25] MEDS ORDERED: PRAMIPEXOLE 1 MG TABLET PO SCH (21:00)
[2018-02-25] MEDS ORDERED: SERTRALINE 100 MG TABLET PO SCH (21:00)
[2018-02-25] MEDS ORDERED: SPIRONOLACTONE 25 MG TABLET PO SCH (21:00)
[2018-02-26] MEDS ORDERED: LEVOTHYROXINE 150 MCG TABLET PO SCH (07:00)
[2018-02-26] MEDS: MAGNESIUM CHLORIDE 64 MG TABLET PO SCH (08:46)
[2018-02-26] MEDS: FLUTICASONE 50 MCG NASAL SPRAY 16 GM BOTTLE BOTH NARES SCH (08:46)
[2018-02-26] MEDS: BUDESONIDE/FORMOTEROL 160-4.5 INHALER 6 GM INH SCH (08:46)
[2018-02-26] MEDS: ASCORBIC ACID 500 MG TABLET PO SCH (08:47)
[2018-02-26] MEDS: APIXABAN 5 MG TABLET PO SCH (08:48)
[2018-02-26] MEDS: PYRIDOSTIGMINE 60 MG TABLET PO SCH (08:49)
[2018-02-26] MEDS: SOTALOL 80 MG TABLET PO SCH (08:49)
[2018-02-26] MEDS: CARVEDILOL 25 MG TABLET PO SCH (08:49)
[2018-02-26] MEDS: cycloSPORINE OPH EMUL 1 VIAL BOTH EYES SCH (08:52)
[2018-02-26] MEDS ORDERED: CHOLECALCIFEROL 5,000 UNIT TABLET PO SCH (09:00)
[2018-02-26] MEDS ORDERED: ASPIRIN EC 81 MG TABLET PO SCH (09:00)
[2018-02-26] MEDS ORDERED: FUROSEMIDE 40 MG TABLET PO SCH (09:00)
[2018-02-26] MEDS ORDERED: MULTIVITAMIN (BEROCCA) TABLET PO SCH (09:00)
[2018-02-26] MEDS ORDERED: PANTOPRAZOLE 40 MG TABLET PO SCH (09:00)
[2018-02-26] MEDS ORDERED: ALLOPURINOL 300 MG TABLET PO SCH (09:00)
[2018-02-26] MEDS ORDERED: HEPARIN LOCK FLUSH 500 UNIT/5 ML SYRINGE IV ONE (09:27)
[2018-02-26 12:06] VITALS: BP 138/71
== END 2018-02-26 12:35 | disposition home or self-care (01) ==
LOC: N.4E
PROVIDERS: ADMIT Internal Medicine; ATTEND Internal Medicine

== ENCOUNTER 2020-10-18 23:13 | Inpatient (IN) ==
[2020-10-18] MEDS ORDERED: HYDROmorphone 2 MG/1 ML VIAL IV STA (23:46)
[2020-10-18] MEDS ORDERED: ONDANSETRON 4 MG/2 ML VIAL IV ONE (23:47)
[2020-10-19 00:08] LABS: Basophils % 0.5 % (0.0-0.8); Eosinophils # 0.2 10*3/uL (0.0-0.87); Eosinophils % 1.9 % (0.00-10.9); Hematocrit 28.3 VOL% (35.7-47.0); Hemoglobin 9.1 GM/DL (12.0-16.0); Immature Granulocytes % 0.6 %; Immature Granulocytes Absolute 0.05 #; Lymphocytes # 1.1 10*3/uL (1.4-4.0); Lymphocytes % 13.6 % (21.3-54.2); Mean Corpuscular HGB Conc 32.2 GM/DL (32-36); Mean Corpuscular Volume 101.1 FL (87-102); Mean Platelet Volume 10.3 FL (9.6-12.0); Monocytes % 7.7 % (1.7-12.7); Neutrophils % 75.7 % (38.7-73.9); Platelet Count 180 T/CUMM (130-400); Red Cell Distribution Width 14.8 % (9.3-17.3); White Blood Count 7.9 T/CUMM (4-12)
[2020-10-19 00:31] LABS: Alanine Aminotransferase 36 U/L (13-56); Alkaline Phosphatase 146 U/L (45-117); Aspartate Amino Transferase 22 U/L (0-37); Bilirubin,Total < 0.39 MG/DL (0.2-1.0); Blood Urea Nitrogen 56 MG/DL (7-18); Calcium 8.7 MG/DL (8.5-10.1); Estimated Glom Filtration Rate 23 ML/MIN; Glucose 116 MG/DL (74-106); Total Protein 6.8 G/DL (6.4-8.3)
[2020-10-19 01:12] LABS: Bilirubin,Urine Negative (Negative); Blood, Urine Negative (Negative); Glucose,Urine (UA) Negative (Negative); Hyaline Casts,Urine 10 /LPF (0-3); Ketones,Urine Negative (Negative); Mucus,Urine Occasional /LPF (Occasional); Nitrite,Urine Negative (Negative); Protein,Urine Negative; RBC,Urine <1 /HPF (0-4); Squamous Epithelial Cell,Urine Occasional /HPF (0-10); Urine Appearance CLEAR (Clear); Urine Color Yellow (Yellow); Urine Specific Gravity 1.012 (1.001-1.035); Urine Urobilinogen < 2.0 EU/DL (0.2-1.0); WBC,Urine 1 /HPF (0-6)
[2020-10-19] MEDS ORDERED: DEXTROSE 50% 25 GM/50 ML VIAL IV PRN (01:39)
[2020-10-19] MEDS ORDERED: ACETAMINOPHEN 325 MG TABLET PO PRN (01:39)
[2020-10-19] MEDS ORDERED: ONDANSETRON 4 MG/2 ML VIAL IV PRN (01:39)
[2020-10-19] MEDS ORDERED: GLUCAGON 1 MG VIAL IM PRN (01:39)
[2020-10-19] MEDS: HYDROmorphone 2 MG/1 ML VIAL IV PRN ×3 (04:48→15:44)
[2020-10-19] MEDS: LEVOTHYROXINE 150 MCG TABLET PO SCH (06:04)
[2020-10-19] MEDS ORDERED: ALBUTEROL 2.5 MG/3 ML NEB RESP TX PRN (07:00)
[2020-10-19] MEDS: SODIUM CHLORIDE 0.45% 1,000 ML IV SCH (07:18)
[2020-10-19] MEDS: MULTIVITAMIN (BEROCCA) TABLET PO SCH (09:07)
[2020-10-19] MEDS: SOTALOL 80 MG TABLET PO SCH ×2 (09:08→21:02)
[2020-10-19] MEDS: FUROSEMIDE 20 MG TABLET PO SCH ×2 (09:08→14:49)
[2020-10-19] MEDS: hydrALAZINE 25 MG TABLET PO SCH (09:08)
[2020-10-19] MEDS: DOCUSATE SODIUM 100 MG CAPSULE PO SCH ×2 (09:08→21:02)
[2020-10-19] MEDS: SPIRONOLACTONE 25 MG TABLET PO SCH ×2 (09:09→21:02)
[2020-10-19] MEDS: APIXABAN 2.5 MG TABLET PO SCH ×2 (09:09→21:02)
[2020-10-19] MEDS: PANTOPRAZOLE 40 MG TABLET PO SCH (09:09)
[2020-10-19] MEDS: cycloSPORINE OPH EMUL 1 VIAL BOTH EYES SCH ×2 (14:49→21:02)
[2020-10-19] MEDS: FLUTICASONE 50 MCG NASAL SPRAY 16 GM BOTTLE BOTH NARES SCH ×2 (18:27→20:58)
[2020-10-19 18:29] LABS: Bilirubin,Urine Negative (Negative); Blood, Urine Negative (Negative); Glucose,Urine (UA) Negative (Negative); Hyaline Casts,Urine 16 /LPF (0-3); Ketones,Urine Negative (Negative); Mucus,Urine Occasional /LPF (Occasional); Nitrite,Urine Negative (Negative); Protein,Urine Negative; Squamous Epithelial Cell,Urine Occasional /HPF (0-10); Urine Appearance CLEAR (Clear); Urine Color Yellow (Yellow); Urine Urobilinogen < 2.0 EU/DL (0.2-1.0)
[2020-10-19] MEDS: oxyCODONE/ACETAMINOPHEN 5-325 MG TABLET PO PRN (18:32)
[2020-10-19] MEDS: PRAMIPEXOLE 1 MG TABLET PO SCH (20:59)
[2020-10-19] MEDS: PREGABALIN 50 MG CAPSULE PO SCH (20:59)
[2020-10-19] MEDS: SERTRALINE 100 MG TABLET PO SCH (21:02)
[2020-10-20] MEDS: HYDROmorphone 2 MG/1 ML VIAL IV PRN (01:14)
[2020-10-20] MEDS: LEVOTHYROXINE 150 MCG TABLET PO SCH (06:06)
[2020-10-20] MEDS: SODIUM CHLORIDE 0.45% 1,000 ML IV SCH (07:16)
[2020-10-20] MEDS: MULTIVITAMIN (BEROCCA) TABLET PO SCH (10:12)
[2020-10-20] MEDS: SOTALOL 80 MG TABLET PO SCH ×2 (10:12→21:19)
[2020-10-20] MEDS: SPIRONOLACTONE 25 MG TABLET PO SCH ×2 (10:14→21:19)
[2020-10-20] MEDS: FUROSEMIDE 20 MG TABLET PO SCH ×2 (10:14→15:36)
[2020-10-20] MEDS: hydrALAZINE 25 MG TABLET PO SCH (10:14)
[2020-10-20] MEDS: DOCUSATE SODIUM 100 MG CAPSULE PO SCH ×2 (10:14→21:18)
[2020-10-20] MEDS: APIXABAN 2.5 MG TABLET PO SCH ×2 (10:14→21:18)
[2020-10-20] MEDS: PREGABALIN 50 MG CAPSULE PO SCH ×2 (10:15→21:50)
[2020-10-20] MEDS: PANTOPRAZOLE 40 MG TABLET PO SCH (10:15)
[2020-10-20 13:59] LABS: Basophils % 0.4 % (0.0-0.8); Eosinophils # 0.1 10*3/uL (0.0-0.87); Eosinophils % 1.6 % (0.00-10.9); Hematocrit 28.2 VOL% (35.7-47.0); Immature Granulocytes % 0.5 %; Immature Granulocytes Absolute 0.04 #; Lymphocytes # 0.8 10*3/uL (1.4-4.0); Lymphocytes % 10.8 % (21.3-54.2); Mean Corpuscular HGB Conc 31.9 GM/DL (32-36); Mean Corpuscular Volume 101.4 FL (87-102); Mean Platelet Volume 10.4 FL (9.6-12.0); Monocytes % 8.4 % (1.7-12.7); Neutrophils % 78.3 % (38.7-73.9); Platelet Count 202 T/CUMM (130-400); Red Blood Count 2.78 MC/CUMM (3.8-5.5); Red Cell Distribution Width 14.3 % (9.3-17.3); White Blood Count 7.5 T/CUMM (4-12)
[2020-10-20 14:23] LABS: Calcium 8.9 MG/DL (8.5-10.1); Osmolality,Calculated 288.1 MOS/KG (273-304)
[2020-10-20] MEDS: FLUTICASONE 50 MCG NASAL SPRAY 16 GM BOTTLE BOTH NARES SCH (14:28)
[2020-10-20] MEDS: cycloSPORINE OPH EMUL 1 VIAL BOTH EYES SCH ×2 (15:36→21:51)
[2020-10-20] MEDS: oxyCODONE/ACETAMINOPHEN 5-325 MG TABLET PO PRN (17:32)
[2020-10-20] MEDS: SERTRALINE 100 MG TABLET PO SCH (21:20)
[2020-10-20] MEDS: PRAMIPEXOLE 1 MG TABLET PO SCH (21:49)
[2020-10-21] MEDS: oxyCODONE/ACETAMINOPHEN 5-325 MG TABLET PO PRN ×3 (00:52→19:25)
[2020-10-21] MEDS: FLUTICASONE 50 MCG NASAL SPRAY 16 GM BOTTLE BOTH NARES SCH ×3 (04:48→22:09)
[2020-10-21] MEDS ORDERED: SODIUM CHLORIDE 0.9% 1,000 ML IV SCH (09:00)
[2020-10-21 09:09] LABS: Calcium 9.1 MG/DL (8.5-10.1)
[2020-10-21] MEDS: PANTOPRAZOLE 40 MG TABLET PO SCH (09:41)
[2020-10-21] MEDS: DOCUSATE SODIUM 100 MG CAPSULE PO SCH ×2 (09:41→21:57)
[2020-10-21] MEDS: LEVOTHYROXINE 150 MCG TABLET PO SCH (09:42)
[2020-10-21] MEDS: SOTALOL 80 MG TABLET PO SCH ×2 (09:42→21:56)
[2020-10-21] MEDS: FUROSEMIDE 20 MG TABLET PO SCH ×2 (09:42→14:37)
[2020-10-21] MEDS: SPIRONOLACTONE 25 MG TABLET PO SCH ×2 (09:42→21:56)
[2020-10-21] MEDS: MULTIVITAMIN (BEROCCA) TABLET PO SCH (09:42)
[2020-10-21] MEDS: hydrALAZINE 25 MG TABLET PO SCH (09:43)
[2020-10-21] MEDS: cycloSPORINE OPH EMUL 1 VIAL BOTH EYES SCH ×2 (09:43→21:58)
[2020-10-21] MEDS: PREGABALIN 50 MG CAPSULE PO SCH ×2 (12:01→21:58)
[2020-10-21] MEDS: SERTRALINE 100 MG TABLET PO SCH (21:59)
[2020-10-21] MEDS: PRAMIPEXOLE 1 MG TABLET PO SCH (22:25)
[2020-10-22 06:22] LABS: Calcium 9.4 MG/DL (8.5-10.1)
[2020-10-22] MEDS: oxyCODONE/ACETAMINOPHEN 5-325 MG TABLET PO PRN ×2 (06:42→17:01)
[2020-10-22] MEDS: HYDROmorphone 2 MG/1 ML VIAL IV PRN (10:13)
[2020-10-22] MEDS: SOTALOL 80 MG TABLET PO SCH ×2 (10:15→21:54)
[2020-10-22] MEDS: LEVOTHYROXINE 150 MCG TABLET PO SCH (10:15)
[2020-10-22] MEDS: hydrALAZINE 25 MG TABLET PO SCH (10:15)
[2020-10-22] MEDS: SPIRONOLACTONE 25 MG TABLET PO SCH ×2 (10:15→21:54)
[2020-10-22] MEDS: PREGABALIN 50 MG CAPSULE PO SCH ×2 (10:15→22:00)
[2020-10-22] MEDS: cycloSPORINE OPH EMUL 1 VIAL BOTH EYES SCH ×2 (10:15→21:55)
[2020-10-22] MEDS: PANTOPRAZOLE 40 MG TABLET PO SCH (10:15)
[2020-10-22] MEDS: DOCUSATE SODIUM 100 MG CAPSULE PO SCH (10:16)
[2020-10-22] MEDS: FUROSEMIDE 20 MG TABLET PO SCH ×2 (10:16→14:37)
[2020-10-22] MEDS: MULTIVITAMIN (BEROCCA) TABLET PO SCH (10:16)
[2020-10-22] MEDS: FLUTICASONE 50 MCG NASAL SPRAY 16 GM BOTTLE BOTH NARES SCH ×2 (10:18→21:55)
[2020-10-22] MEDS: SODIUM CHLORIDE 0.9% 1,000 ML IV SCH (12:50)
[2020-10-22] MEDS: PARICALCITOL 2 MCG PO SCH (14:20)
[2020-10-22] MEDS: LINACLOTIDE 145 MCG CAPSULE PO SCH (14:38)
[2020-10-22] MEDS: PRAMIPEXOLE 1 MG TABLET PO SCH (21:54)
[2020-10-22] MEDS: SERTRALINE 100 MG TABLET PO SCH (21:55)
[2020-10-23] MEDS: SODIUM CHLORIDE 0.9% 1,000 ML IV SCH (01:47)
[2020-10-23] MEDS: DOCUSATE SODIUM 100 MG CAPSULE PO SCH ×3 (04:22→21:15)
[2020-10-23 05:57] LABS: Basophils # 0.1 10*3/uL (0.0-0.2); Basophils % 0.8 % (0.0-0.8); Eosinophils # 0.2 10*3/uL (0.0-0.87); Eosinophils % 3.4 % (0.00-10.9); Hematocrit 30.3 VOL% (35.7-47.0); Hemoglobin 9.6 GM/DL (12.0-16.0); Immature Granulocytes % 0.8 %; Immature Granulocytes Absolute 0.05 #; Lymphocytes # 0.9 10*3/uL (1.4-4.0); Lymphocytes % 14.3 % (21.3-54.2); Mean Corpuscular HGB Conc 31.7 GM/DL (32-36); Mean Corpuscular Volume 101.7 FL (87-102); Mean Platelet Volume 10.7 FL (9.6-12.0); Monocytes % 8.5 % (1.7-12.7); Neutrophils % 72.2 % (38.7-73.9); Platelet Count 249 T/CUMM (130-400); Red Blood Count 2.98 MC/CUMM (3.8-5.5); Red Cell Distribution Width 13.9 % (9.3-17.3); White Blood Count 6.5 T/CUMM (4-12)
[2020-10-23 06:10] LABS: Calcium 9.3 MG/DL (8.5-10.1); Osmolality,Calculated 296.7 MOS/KG (273-304)
[2020-10-23] MEDS: SOTALOL 80 MG TABLET PO SCH ×2 (09:49→21:16)
[2020-10-23] MEDS: cycloSPORINE OPH EMUL 1 VIAL BOTH EYES SCH ×2 (09:49→21:16)
[2020-10-23] MEDS: MULTIVITAMIN (BEROCCA) TABLET PO SCH (09:49)
[2020-10-23] MEDS: LINACLOTIDE 145 MCG CAPSULE PO SCH (09:54)
[2020-10-23] MEDS: FLUTICASONE 50 MCG NASAL SPRAY 16 GM BOTTLE BOTH NARES SCH ×2 (09:54→21:17)
[2020-10-23] MEDS: LEVOTHYROXINE 150 MCG TABLET PO SCH (09:54)
[2020-10-23] MEDS: FUROSEMIDE 20 MG TABLET PO SCH ×2 (09:54→16:20)
[2020-10-23] MEDS: PYRIDOSTIGMINE 60 MG TABLET PO SCH ×3 (09:55→21:16)
[2020-10-23] MEDS: hydrALAZINE 25 MG TABLET PO SCH (09:55)
[2020-10-23] MEDS: PANTOPRAZOLE 40 MG TABLET PO SCH ×2 (09:55→21:15)
[2020-10-23] MEDS: PREGABALIN 50 MG CAPSULE PO SCH ×2 (09:55→21:15)
[2020-10-23] MEDS: SPIRONOLACTONE 25 MG TABLET PO SCH ×2 (09:55→21:15)
[2020-10-23] MEDS: oxyCODONE/ACETAMINOPHEN 5-325 MG TABLET PO PRN (14:23)
[2020-10-23] MEDS: PRAMIPEXOLE 1 MG TABLET PO SCH (21:15)
[2020-10-23] MEDS: SERTRALINE 100 MG TABLET PO SCH (21:17)
[2020-10-23] MEDS ORDERED: ZINC OXIDE PASTE 113 GM TUBE TOP PRN (22:11)
[2020-10-24 05:53] LABS: Calcium 9.7 MG/DL (8.5-10.1); Osmolality,Calculated 295.7 MOS/KG (273-304)
[2020-10-24] MEDS: SODIUM CHLORIDE 0.9% 1,000 ML IV SCH ×2 (06:19→21:16)
[2020-10-24] MEDS: LEVOTHYROXINE 150 MCG TABLET PO SCH (06:19)
[2020-10-24] MEDS: LINACLOTIDE 145 MCG CAPSULE PO SCH (08:18)
[2020-10-24] MEDS: SOTALOL 80 MG TABLET PO SCH ×2 (08:30→21:18)
[2020-10-24] MEDS: PANTOPRAZOLE 40 MG TABLET PO SCH ×2 (08:30→21:18)
[2020-10-24] MEDS: cycloSPORINE OPH EMUL 1 VIAL BOTH EYES SCH ×2 (09:00→21:18)
[2020-10-24] MEDS: SPIRONOLACTONE 25 MG TABLET PO SCH ×2 (09:00→21:18)
[2020-10-24] MEDS: PREGABALIN 50 MG CAPSULE PO SCH ×2 (09:00→21:17)
[2020-10-24] MEDS: DOCUSATE SODIUM 100 MG CAPSULE PO SCH ×2 (09:00→22:02)
[2020-10-24] MEDS: MULTIVITAMIN (BEROCCA) TABLET PO SCH (09:00)
[2020-10-24] MEDS: oxyCODONE/ACETAMINOPHEN 5-325 MG TABLET PO PRN (09:08)
[2020-10-24] MEDS: FLUTICASONE 50 MCG NASAL SPRAY 16 GM BOTTLE BOTH NARES SCH ×2 (10:00→21:15)
[2020-10-24] MEDS: POTASSIUM CHLORIDE 10 MEQ TABLET PO SCH (10:47)
[2020-10-24] MEDS: FUROSEMIDE 20 MG TABLET PO SCH ×2 (10:48→15:37)
[2020-10-24] MEDS ORDERED: TRIAMCINOLONE ACETONIDE 40 MG/1 ML VIAL ONE (11:18)
[2020-10-24] MEDS ORDERED: LIDOCAINE 1%/EPI INJ 20 ML VIAL ONE (11:18)
[2020-10-24] MEDS ORDERED: VANCOMYCIN 500 MG VIAL ONE (11:18)
[2020-10-24] MEDS ORDERED: fentaNYL 100 MCG/2 ML VIAL ONE (11:51)
[2020-10-24] MEDS: PYRIDOSTIGMINE 60 MG TABLET PO SCH ×3 (11:59→21:18)
[2020-10-24] MEDS ORDERED: PHENYLEPHRINE 1 MG/10 ML SYRINGE IV ONE (12:15)
[2020-10-24] MEDS ORDERED: LIDOCAINE 2% 5 ML VIAL ONE (12:15)
[2020-10-24] MEDS ORDERED: propofoL 200 MG/20 ML VIAL IV ONE (12:15)
[2020-10-24] MEDS: HYDROmorphone 2 MG/1 ML VIAL IV PRN ×3 (14:16→23:17)
[2020-10-24] MEDS: hydrALAZINE 25 MG TABLET PO SCH (17:13)
[2020-10-24] MEDS: PRAMIPEXOLE 1 MG TABLET PO SCH (21:17)
[2020-10-24] MEDS: SERTRALINE 100 MG TABLET PO SCH (21:18)
[2020-10-25 05:49] LABS: Basophils # 0.1 10*3/uL (0.0-0.2); Basophils % 0.7 % (0.0-0.8); Eosinophils # 0.1 10*3/uL (0.0-0.87); Hematocrit 30.3 VOL% (35.7-47.0); Hemoglobin 9.6 GM/DL (12.0-16.0); Immature Granulocytes % 1.3 %; Immature Granulocytes Absolute 0.09 #; Lymphocytes % 14.3 % (21.3-54.2); Mean Corpuscular HGB Conc 31.7 GM/DL (32-36); Mean Corpuscular Volume 100.3 FL (87-102); Mean Platelet Volume 10.4 FL (9.6-12.0); Monocytes % 8.1 % (1.7-12.7); Neutrophils % 73.6 % (38.7-73.9); Platelet Count 278 T/CUMM (130-400); Red Blood Count 3.02 MC/CUMM (3.8-5.5); Red Cell Distribution Width 14.2 % (9.3-17.3); White Blood Count 7.1 T/CUMM (4-12)
[2020-10-25] MEDS: LEVOTHYROXINE 150 MCG TABLET PO SCH (06:09)
[2020-10-25 06:16] LABS: Calcium 9.7 MG/DL (8.5-10.1); Osmolality,Calculated 293.7 MOS/KG (273-304)
[2020-10-25] MEDS: oxyCODONE/ACETAMINOPHEN 5-325 MG TABLET PO PRN ×2 (08:40→15:45)
[2020-10-25] MEDS: APIXABAN 2.5 MG TABLET PO SCH ×3 (09:00→21:28)
[2020-10-25] MEDS: SOTALOL 80 MG TABLET PO SCH ×3 (09:00→21:28)
[2020-10-25] MEDS: MULTIVITAMIN (BEROCCA) TABLET PO SCH (11:15)
[2020-10-25] MEDS: FLUTICASONE 50 MCG NASAL SPRAY 16 GM BOTTLE BOTH NARES SCH ×2 (11:15→21:29)
[2020-10-25] MEDS: cycloSPORINE OPH EMUL 1 VIAL BOTH EYES SCH ×2 (11:15→21:30)
[2020-10-25] MEDS: PYRIDOSTIGMINE 60 MG TABLET PO SCH ×3 (11:15→21:29)
[2020-10-25] MEDS: POTASSIUM CHLORIDE 10 MEQ TABLET PO SCH (11:15)
[2020-10-25] MEDS: PREGABALIN 50 MG CAPSULE PO SCH ×2 (11:15→21:29)
[2020-10-25] MEDS: DOCUSATE SODIUM 100 MG CAPSULE PO SCH ×2 (11:15→21:30)
[2020-10-25] MEDS: LINACLOTIDE 145 MCG CAPSULE PO SCH (11:15)
[2020-10-25] MEDS: FUROSEMIDE 20 MG TABLET PO SCH ×2 (11:15→15:45)
[2020-10-25] MEDS: PANTOPRAZOLE 40 MG TABLET PO SCH ×2 (11:15→21:29)
[2020-10-25] MEDS: hydrALAZINE 25 MG TABLET PO SCH (11:15)
[2020-10-25] MEDS: SPIRONOLACTONE 25 MG TABLET PO SCH ×2 (11:15→21:28)
[2020-10-25] MEDS: SODIUM CHLORIDE 0.9% 1,000 ML IV SCH (17:30)
[2020-10-25] MEDS: PRAMIPEXOLE 1 MG TABLET PO SCH (21:29)
[2020-10-25] MEDS: SERTRALINE 100 MG TABLET PO SCH (21:30)
[2020-10-26] MEDS: oxyCODONE/ACETAMINOPHEN 5-325 MG TABLET PO PRN ×2 (00:05→08:48)
[2020-10-26 06:38] LABS: Calcium 9.2 MG/DL (8.5-10.1); Osmolality,Calculated 294.5 MOS/KG (273-304)
[2020-10-26] MEDS: PREGABALIN 50 MG CAPSULE PO SCH ×2 (08:46→21:31)
[2020-10-26] MEDS: PANTOPRAZOLE 40 MG TABLET PO SCH ×2 (08:47→21:31)
[2020-10-26] MEDS: hydrALAZINE 25 MG TABLET PO SCH (08:47)
[2020-10-26] MEDS: POTASSIUM CHLORIDE 10 MEQ TABLET PO SCH (08:47)
[2020-10-26] MEDS: MULTIVITAMIN (BEROCCA) TABLET PO SCH (08:47)
[2020-10-26] MEDS: PYRIDOSTIGMINE 60 MG TABLET PO SCH ×3 (08:47→21:31)
[2020-10-26] MEDS: SPIRONOLACTONE 25 MG TABLET PO SCH ×2 (08:47→21:30)
[2020-10-26] MEDS: LEVOTHYROXINE 150 MCG TABLET PO SCH (08:47)
[2020-10-26] MEDS: FLUTICASONE 50 MCG NASAL SPRAY 16 GM BOTTLE BOTH NARES SCH ×2 (08:48→21:32)
[2020-10-26] MEDS: SOTALOL 80 MG TABLET PO SCH ×2 (08:48→21:31)
[2020-10-26] MEDS: APIXABAN 2.5 MG TABLET PO SCH ×2 (08:48→21:32)
[2020-10-26] MEDS: FUROSEMIDE 20 MG TABLET PO SCH ×2 (08:48→16:04)
[2020-10-26] MEDS: cycloSPORINE OPH EMUL 1 VIAL BOTH EYES SCH ×2 (08:48→21:32)
[2020-10-26] MEDS: LINACLOTIDE 145 MCG CAPSULE PO SCH (11:59)
[2020-10-26] MEDS: DOCUSATE SODIUM 100 MG CAPSULE PO SCH ×2 (12:00→21:30)
[2020-10-26] MEDS: SODIUM CHLORIDE 0.9% 1,000 ML IV SCH (13:35)
[2020-10-26] MEDS ORDERED: POTASSIUM CHLORIDE 10 MEQ TABLET PO ONE (15:08)
[2020-10-26] MEDS ORDERED: DEXTROSE 50% 25 GM/50 ML VIAL IV PRN (15:10)
[2020-10-26] MEDS ORDERED: GLUCAGON 1 MG VIAL IM PRN (15:10)
[2020-10-26] MEDS ORDERED: ALBUTEROL 2.5 MG/3 ML NEB RESP TX PRN (15:12)
[2020-10-26] MEDS: methylPREDNISolone SOD SUC 40 MG/1 ML VIAL IV SCH (16:03)
[2020-10-26] MEDS: ALBUTEROL/IPRATROPIUM 3 ML NEB RESP TX SCH (19:07)
[2020-10-26] MEDS: INSULIN LISPRO 100 UNIT/ML SUBCUT SCH (21:27)
[2020-10-26] MEDS: SERTRALINE 100 MG TABLET PO SCH (21:31)
[2020-10-26] MEDS: PRAMIPEXOLE 1 MG TABLET PO SCH (21:31)
[2020-10-27] MEDS: oxyCODONE/ACETAMINOPHEN 5-325 MG TABLET PO PRN ×4 (00:14→23:25)
[2020-10-27] MEDS: ALBUTEROL/IPRATROPIUM 3 ML NEB RESP TX SCH ×4 (00:50→19:32)
[2020-10-27] MEDS: methylPREDNISolone SOD SUC 40 MG/1 ML VIAL IV SCH ×2 (03:37→15:52)
[2020-10-27] MEDS: LEVOTHYROXINE 150 MCG TABLET PO SCH (06:49)
[2020-10-27 07:52] LABS: Osmolality,Calculated 297.8 MOS/KG (273-304)
[2020-10-27] MEDS: SOTALOL 80 MG TABLET PO SCH ×2 (08:21→21:25)
[2020-10-27] MEDS: APIXABAN 2.5 MG TABLET PO SCH ×2 (08:21→21:26)
[2020-10-27] MEDS: FUROSEMIDE 20 MG TABLET PO SCH ×3 (08:21→18:46)
[2020-10-27] MEDS: SPIRONOLACTONE 25 MG TABLET PO SCH ×2 (08:21→21:24)
[2020-10-27] MEDS: cycloSPORINE OPH EMUL 1 VIAL BOTH EYES SCH ×2 (08:21→21:31)
[2020-10-27] MEDS: POTASSIUM CHLORIDE 20 MEQ TABLET PO SCH (08:21)
[2020-10-27] MEDS: hydrALAZINE 25 MG TABLET PO SCH ×2 (08:22→21:25)
[2020-10-27] MEDS: PANTOPRAZOLE 40 MG TABLET PO SCH ×2 (08:22→21:27)
[2020-10-27] MEDS: PYRIDOSTIGMINE 60 MG TABLET PO SCH ×3 (08:22→21:27)
[2020-10-27] MEDS: PREGABALIN 50 MG CAPSULE PO SCH ×2 (08:22→21:26)
[2020-10-27] MEDS: MULTIVITAMIN (BEROCCA) TABLET PO SCH (08:22)
[2020-10-27] MEDS: INSULIN LISPRO 100 UNIT/ML SUBCUT SCH ×2 (08:22→16:43)
[2020-10-27] MEDS: FLUTICASONE 50 MCG NASAL SPRAY 16 GM BOTTLE BOTH NARES SCH ×2 (08:40→21:27)
[2020-10-27] MEDS: LINACLOTIDE 145 MCG CAPSULE PO SCH (12:32)
[2020-10-27] MEDS: DOCUSATE SODIUM 100 MG CAPSULE PO SCH ×2 (12:32→21:26)
[2020-10-27] MEDS: SODIUM CHLORIDE 0.9% 1,000 ML IV SCH (12:45)
[2020-10-27] MEDS: DOCOSANOL 10% CREAM 2 GM TUBE TOP SCH ×3 (14:54→21:46)
[2020-10-27] MEDS: PRAMIPEXOLE 1 MG TABLET PO SCH (21:27)
[2020-10-27] MEDS: SERTRALINE 100 MG TABLET PO SCH (21:27)
[2020-10-27] MEDS ORDERED: ALUMINUM/MAGNES/SIMETH MAX STR 30 ML UDCUP PO PRN (23:07)
[2020-10-27] MEDS: PROPRANOLOL 40 MG TABLET PO SCH (23:45)
[2020-10-27] MEDS: ASPIRIN EC 81 MG TABLET PO SCH (23:45)
[2020-10-28] MEDS: ALBUTEROL/IPRATROPIUM 3 ML NEB RESP TX SCH ×4 (01:21→19:19)
[2020-10-28] MEDS: methylPREDNISolone SOD SUC 40 MG/1 ML VIAL IV SCH ×2 (03:38→16:24)
[2020-10-28 06:04] LABS: Basophils % 0.1 % (0.0-0.8); Eosinophils % 0.1 % (0.00-10.9); Hematocrit 32.6 VOL% (35.7-47.0); Hemoglobin 10.6 GM/DL (12.0-16.0); Immature Granulocytes % 1.8 %; Lymphocytes # 0.8 10*3/uL (1.4-4.0); Lymphocytes % 7.4 % (21.3-54.2); Mean Corpuscular HGB Conc 32.5 GM/DL (32-36); Mean Corpuscular Volume 99.7 FL (87-102); Mean Platelet Volume 10.6 FL (9.6-12.0); Monocytes % 3.2 % (1.7-12.7); Neutrophils % 87.4 % (38.7-73.9); Platelet Count 300 T/CUMM (130-400); Red Blood Count 3.27 MC/CUMM (3.8-5.5); Red Cell Distribution Width 13.8 % (9.3-17.3); White Blood Count 11.2 T/CUMM (4-12)
[2020-10-28 06:16] LABS: Albumin 2.9 G/DL (3.4-5.0); Bilirubin,Total 0.4 MG/DL (0.2-1.0); Calcium 9.2 MG/DL (8.5-10.1); Total Protein 7.3 G/DL (6.4-8.3)
[2020-10-28] MEDS: LEVOTHYROXINE 150 MCG TABLET PO SCH (06:52)
[2020-10-28] MEDS: SODIUM CHLORIDE 0.9% 1,000 ML IV SCH (07:26)
[2020-10-28] MEDS: DOCOSANOL 10% CREAM 2 GM TUBE TOP SCH ×4 (09:00→18:47)
[2020-10-28] MEDS ORDERED: BRIMONIDINE 0.1% OPH SOLN 5 ML BOTTLE RIGHT EYE SCH (09:00)
[2020-10-28] MEDS: DOCUSATE SODIUM 100 MG CAPSULE PO SCH ×2 (09:03→20:21)
[2020-10-28] MEDS: MULTIVITAMIN (BEROCCA) TABLET PO SCH (09:03)
[2020-10-28] MEDS: INSULIN LISPRO 100 UNIT/ML SUBCUT SCH ×2 (09:03→16:14)
[2020-10-28] MEDS: FUROSEMIDE 20 MG TABLET PO SCH ×2 (09:04→14:36)
[2020-10-28] MEDS: cycloSPORINE OPH EMUL 1 VIAL BOTH EYES SCH ×2 (09:07→20:22)
[2020-10-28] MEDS: PYRIDOSTIGMINE 60 MG TABLET PO SCH ×3 (09:08→20:34)
[2020-10-28] MEDS: PREGABALIN 50 MG CAPSULE PO SCH ×2 (09:09→20:23)
[2020-10-28] MEDS: POTASSIUM CHLORIDE 20 MEQ TABLET PO SCH (09:10)
[2020-10-28] MEDS: PANTOPRAZOLE 40 MG TABLET PO SCH ×2 (09:10→20:21)
[2020-10-28] MEDS: SPIRONOLACTONE 25 MG TABLET PO SCH ×2 (09:17→20:34)
[2020-10-28] MEDS: hydrALAZINE 25 MG TABLET PO SCH ×2 (09:21→20:21)
[2020-10-28] MEDS: ASPIRIN EC 81 MG TABLET PO SCH (09:21)
[2020-10-28] MEDS: LINACLOTIDE 145 MCG CAPSULE PO SCH (09:21)
[2020-10-28] MEDS: FLUTICASONE 50 MCG NASAL SPRAY 16 GM BOTTLE BOTH NARES SCH ×2 (09:22→20:24)
[2020-10-28] MEDS: MAGNESIUM CHLORIDE 64 MG TABLET PO SCH ×2 (09:40→20:21)
[2020-10-28] MEDS: PROPRANOLOL 40 MG TABLET PO SCH ×2 (09:40→20:21)
[2020-10-28] MEDS: PARICALCITOL 2 MCG PO SCH (11:09)
[2020-10-28] MEDS: PRAMIPEXOLE 1 MG TABLET PO SCH ×2 (20:22→20:32)
[2020-10-28] MEDS: SERTRALINE 100 MG TABLET PO SCH (20:25)
[2020-10-28] MEDS: SOTALOL 80 MG TABLET PO SCH (20:26)
[2020-10-28] MEDS: oxyCODONE/ACETAMINOPHEN 5-325 MG TABLET PO PRN (21:32)
[2020-10-29 03:26] VITALS: BP 119/70
== END 2020-10-28 22:25 | disposition hospice, home (50) | DRG 552 ==
LOC: EDUNIT# → EDBD → N.ED 23:13 → N.EDINP 23:13 → N.3E 10-19 03:04 → N.OB 10-20 17:12
PROVIDERS: ADMIT Internal Medicine; ATTEND Internal Medicine